=== PATIENT | male | born 1945 | race Two or more races ===

== ENCOUNTER 2019-02-08 11:22 | Inpatient (IN) | payer MEDICARE, OTHER ==
[~2019-02-08] VITALS: Ht 172.7 cm; Wt 95.3 kg
[~2019-02-08 11:22] MED LIST: ALBUTEROL2.5 MG/3 M INH; AMIODARONE HCL200 MG ORAL; COUMADIN10 MG ORAL; COZAAR100 MG ORAL; COZAAR50 MG ORAL; HYDROCODON-ACE1 EA13 ORAL; K LOR ORAL; LOVENOX100 MG/1 M SQ; MIRALAX17 G2 ORAL; NORCO 10/3251 EA ORAL; NORVASC10 MG ORAL; NORVASC5 MG ORAL; PROTONIX40 MG ORAL; RESTORIL30 MG ORAL; TRAMADOL HCL50 MG ORAL; TYLENOL325 MG ORAL; UNOBMED
[2019-02-08] MEDS ORDERED: TRAMADOL HCL50 MG ORAL (11:47)
[2019-02-08] MEDS ORDERED: NORCO 5-325 TA1 EACH ORAL (11:47)
[2019-02-08 11:59] VITALS: BP 141/97
--- NOTE | 2019-02-08 12:04 | NUR ---
ED Nurse Note: Pt came in from home, walked with cane due to bilateral lower leg edema and L hand edema x 1 week, +1 non-pitting. Pt has hx of CHF. Also noted open ulcer on L lateral foot, white patch noted x 1 week. Pt complains of SOB on-and-off during this time. Usually use cane or walker at home. Pain 6/10 at this time. AOO4, vital signs stable. Will cont to monitor.
[2019-02-08 12:11] LABS: BASOPHILS % (AUTO) 1.2 % (0.0-2.0); EOSINOPHILS % (AUTO) 0.7 % (0.0-3.0); HEMATOCRIT 35.9 % (42.0-52.0); HEMOGLOBIN 10.7 G/DL (14.2-18.0); LYMPHOCYTES % (AUTO) 13.5 % (20.0-45.0); MEAN CORPUSCULAR VOLUME 76 FL (80-99); MONOCYTES % (AUTO) 8.8 % (1.0-10.0); NEUTROPHILS % (AUTO) 75.8 % (45.0-75.0); PLATELET COUNT 283 K/UL (150-450); RED BLOOD COUNT 4.69 M/UL (4.70-6.10); RED CELL DISTRIBUTION WIDTH 17.6 % (11.6-14.8); WHITE BLOOD COUNT 7.9 K/UL (4.8-10.8)
[2019-02-08 12:14] LABS: INR 1.5 (0.9-1.1)
--- NOTE | 2019-02-08 12:16 | Emergency Room Report ---
History of Present Illness General Chief Complaint: Edema Source: Patient Present Illness HPI 73-year-old male history of CHF presents with acute shortness of breath over the past 7 days, patient endorses dyspnea, no nausea no vomiting no chest pain, no abdominal pain he endorses weight gain, patient presents for evaluation, he denies any aggravating relieving factors severity is severe, constant Allergies: Coded Allergies: NO KNOWN DRUG ALLERGIES (Verified Allergy, Unknown, 06/08/15) Patient History Past Medical History: see triage record Reviewed Nursing Documentation: PMH: Agreed; PSxH: Agreed Nursing Documentation-PMH Past Medical History: No History, Except For Hx Cardiac Problems: Yes - respiratory failure, SOB, PNA Hx Hypertension: Yes Hx Diabetes: Yes Hx Cancer: No Hx Gastrointestinal Problems: No Hx Dialysis: No - Hypertensive CKD, Hyponatremia Hx Neurological Problems: No Hx Seizures: No - Gerd, sleep apnea Review of Systems All Other Systems: negative except mentioned in HPI Physical Exam Vital Signs Date Time Temp Pulse Resp B/P (MAP) Pulse Ox O2 Delivery O2 Flow Rate FiO2 02/08/19 11:29 97.9 72 20 127/90 (102) 92 Room Air Sp02 EP Interpretation: reviewed, normal General Appearance: alert, mild distress Head: normocephalic, atraumatic Eyes: bilateral eye PERRL, bilateral eye EOMI ENT: uvula midline, moist mucus membranes Neck: supple, thyroid normal, supple/symm/no masses Respiratory: decreased breath sounds, accessory muscle use, crackles Cardiovascular #1: normal peripheral pulses, regular rate, rhythm, no gallop, edema - 3+ edema up to the thigh Gastrointestinal: non tender, soft, no guarding, no rebound Musculoskeletal: normal inspection Neurologic: alert, oriented x3 Psychiatric: mood/affect normal Skin: no rash, warm/dry Medical Decision Making Diagnostic Impression: Primary Impression: CHF (congestive heart failure) Qualified Codes: I50.41 - Acute combined systolic (congestive) and diastolic ( congestive) heart failure ER Course 73-year-old male presents with shortness of breath, dyspnea, concerning for CHF exacerbation, differential also includes ACS, pneumonia Patient given Lasix, patient found to have edema 3+ Patient will be admitted to the telemetry, aspirin also given. Patient admitted to Dr. Santizo Laboratory Tests Test 02/08/19 11:50 02/08/19 12:30 White Blood Count 7.9 K/UL (4.8-10.8) Red Blood Count 4.69 M/UL (4.70-6.10) L Hemoglobin 10.7 G/DL (14.2-18.0) L Hematocrit 35.9 % (42.0-52.0) L Mean Corpuscular Volume 76 FL (80-99) L Mean Corpuscular Hemoglobin 22.8 PG (27.0-31.0) L Mean Corpuscular Hemoglobin Concent 29.8 G/DL (32.0-36.0) L Red Cell Distribution Width 17.6 % (11.6-14.8) H Platelet Count 283 K/UL (150-450) Mean Platelet Volume 6.8 FL (6.5-10.1) Neutrophils (%) (Auto) 75.8 % (45.0-75.0) H Lymphocytes (%) (Auto) 13.5 % (20.0-45.0) L Monocytes (%) (Auto) 8.8 % (1.0-10.0) Eosinophils (%) (Auto) 0.7 % (0.0-3.0) Basophils (%) (Auto) 1.2 % (0.0-2.0) Prothrombin Time 15.4 SEC (9.30-11.50) H Prothrombin Time INR 1.5 (0.9-1.1) H PTT 31 SEC (23-33) Sodium Level 146 MMOL/L (136-145) H Potassium Level 4.7 MMOL/L (3.5-5.1) Chloride Level 106 MMOL/L (98-107) Carbon Dioxide Level 32 MMOL/L (21-32) Anion Gap 9 mmol/L (5-15) Blood Urea Nitrogen 31 mg/dL (7-18) H Creatinine 1.9 MG/DL (0.55-1.30) H Estimate Glomerular Filtration Rate mL/min (>60) Glucose Level 106 MG/DL (74-106) Calcium Level 8.6 MG/DL (8.5-10.1) Total Bilirubin 0.6 MG/DL (0.2-1.0) Aspartate Amino Transferase (AST) 46 U/L (15-37) H Alanine Aminotransferase (ALT) 48 U/L (12-78) Alkaline Phosphatase 86 U/L (46-116) Total Creatine Kinase 178 U/L (26-308) Creatine Kinase MB 2.6 NG/ML (0.0-3.6) Creatine Kinase MB Relative Index 1.4 Troponin I 0.030 ng/mL (0.000-0.056) Pro-B-Type Natriuretic Peptide 3593 pg/mL (0-125) H Total Protein 6.7 G/DL (6.4-8.2) Albumin 2.8 G/DL (3.4-5.0) L Globulin 3.9 g/dL Albumin/Globulin Ratio 0.7 (1.0-2.7) L Lipase 149 U/L (73-393) Urine Opiates Screen Negative (NEGATIVE) Urine Barbiturates Screen Negative (NEGATIVE) Phencyclidine (PCP) Screen Negative (NEGATIVE) Urine Amphetamines Screen Negative (NEGATIVE) Urine Benzodiazepines Screen Negative (NEGATIVE) Urine Cocaine Screen Negative (NEGATIVE) Urine Marijuana (THC) Screen Negative (NEGATIVE) EKG Diagnostic Results EKG Time: 11:43 EP Interpretation: AV paced dual rhythm, rate 79, QTc 42, no acute ST elevations Rhythm Strip Diag. Results Rhythm Strip Time: 12:46 EP Interpretation: yes Rate: 74 Rhythm: other - paced rhythm Chest X-Ray Diagnostic Results Chest X-Ray Diagnostic Results : Chest X-Ray Ordered: Yes # of Views/Limited/Complete: 1 View Indication: Chest Pain EP Interpretation: Yes Interpretation: other - Bilateral edema Impression: Other - Moderate pulmonary edema Electronically Signed by: Emre Jernigan MD Last Vital Signs Date Time Temp Pulse Resp B/P (MAP) Pulse Ox O2 Delivery O2 Flow Rate FiO2 02/08/19 11:59 97.9 77 18 141/97 95 Room Air Disposition: ADMITTED INPATIENT Condition: Stable Emre Jernigan MD Feb 08, 2019 12:16
[2019-02-08 12:19] LABS: ANION GAP 9 mmol/L (5-15); BLOOD UREA NITROGEN 31 mg/dL (7-18); CALCIUM 8.6 MG/DL (8.5-10.1); CARBON DIOXIDE 32 MMOL/L (21-32); CHLORIDE 106 MMOL/L (98-107); CREATININE 1.9 MG/DL (0.55-1.30); POTASSIUM 4.7 MMOL/L (3.5-5.1); SODIUM 146 MMOL/L (136-145)
[2019-02-08 12:31] LABS: ALANINE AMINOTRANSFERASE 48 U/L (12-78); ALBUMIN 2.8 G/DL (3.4-5.0); ALBUMIN/GLOBULIN RATIO 0.7 (1.0-2.7); ALKALINE PHOSPHATASE 86 U/L (46-116); ASPARTATE AMINO TRANSFERASE 46 U/L (15-37); BILIRUBIN,TOTAL 0.6 MG/DL (0.2-1.0); CKMB 2.6 NG/ML (0.0-3.6); CREATINE KINASE 178 U/L (26-308)
--- NOTE | 2019-02-08 13:00 | NUR ---
ED Nurse Note: Lt foot wound picture updated.
--- NOTE | 2019-02-08 13:41 | NUR ---
ED Nurse Note: Report given to ZACK Austin.
[2019-02-08] MEDS ORDERED: FUROSEMIDE20 M1 ORAL (13:49)
[2019-02-08] MEDS ORDERED: XARELTO10 MG ORAL (13:49)
--- NOTE | 2019-02-08 14:12 | NUR ---
ED Nurse Note: pt left unit with 1 tire and lube technician and 1 RN in stable condition.
[2019-02-08 14:24] VITALS: BP 142/106
--- NOTE | 2019-02-08 14:30 | NUR ---
NURSE NOTES: Patient transferred safely to floor from ED. Report received from ZACK Sahu. hand spring repairer helper applied and pt is SR. Belongings verified. Patient has cane and phone at bedside. A+Ox4, denies pain/SOB. Respirations are even and unlabored on room air. IV site is patent and intact. Patient has bilateral leg 2+ edema. Pt is in stable condition at this time. Addendum: 02/08/19 at 1645 by MATTHEW SKINNER RN Patient is V-Paced
--- NOTE | 2019-02-08 14:57 | Diagnostic Imaging Report ---
Indication: Dyspnea Technique: One view of the chest Comparison: 07/04/2015 Findings: There is mild diffuse bilateral interstitial congestion. Atelectasis and/or scarring are seen at both lung bases. There is probably some pleural fluid on the left. The heart is enlarged. Findings are similar to the previous study Impression: Cardiomegaly Bilateral interstitial edema Suspect left-sided pleural effusion
--- NOTE | 2019-02-08 15:14 | NUR ---
NURSE NOTES: Left message with Dr. Santizo regarding admission orders; awaiting response.
--- NOTE | 2019-02-08 15:40 | NUR ---
NURSE NOTES: Dr. Santizo let me know that Dr. Shields is going to put in admission orders. Left message with Dr. Shields; awaiting response.
[2019-02-08 16:00] VITALS: BP 140/91
--- NOTE | 2019-02-08 16:00 | NUR ---
NURSE NOTES: Per Dr. Santizo, Low sodium diet, insert joaquin, troponin q8hr x3, ekg in AM, O2 PRN, duoneb q6 PRN, resume home meds, morphine 2 mg IV PRN, nutrition eval, cbc+bmp in AM, lasix 10 mg IV BID, and to call Dr. Shields for any other orders.
--- NOTE | 2019-02-08 17:00 | NUR ---
NURSE NOTES: Bennett catheter inserted.
--- NOTE | 2019-02-08 18:57 | NUR ---
NURSE NOTES: 16 Fr joaquin leaking with little output. Inserted 18 Fr and patient was in extreme pain with some resistance. Took joaquin out and let patient void using urinal. Left message with Dr. Santizo; awaiting response.
--- NOTE | 2019-02-08 19:18 | NUR ---
HAND-OFF: Report given to ZACK Ford. Pt is in stable condition; plan of care endorsed.
--- NOTE | 2019-02-08 19:18 | NUR ---
NURSE NOTES: Per Dr. Santizo, okay to not reinsert joaquin. Urinal is okay. Strict I+Os from nursing staff.
--- NOTE | 2019-02-08 19:27 | Cardiology Progress Note ---
Assessment/Plan Assessment/Plan The patient is seen and examined, full consult note will be dictated shortly. Objective Last 24 Hour Vital Signs Date Time Temp Pulse Resp B/P (MAP) Pulse Ox O2 Delivery O2 Flow Rate FiO2 02/08/19 16:00 Room Air 02/08/19 16:00 74 02/08/19 16:00 98.0 76 20 140/91 (107) 100 02/08/19 14:24 97.5 75 18 142/106 (118) 94 02/08/19 14:21 80 02/08/19 14:12 98.1 71 18 135/86 95 Room Air 02/08/19 11:59 97.9 77 18 141/97 95 Room Air 02/08/19 11:57 72 20 Room Air 02/08/19 11:29 97.9 72 20 127/90 (102) 92 Room Air Laboratory Tests Test 02/08/19 11:50 02/08/19 12:30 White Blood Count 7.9 K/UL (4.8-10.8) Red Blood Count 4.69 M/UL (4.70-6.10) L Hemoglobin 10.7 G/DL (14.2-18.0) L Hematocrit 35.9 % (42.0-52.0) L Mean Corpuscular Volume 76 FL (80-99) L Mean Corpuscular Hemoglobin 22.8 PG (27.0-31.0) L Mean Corpuscular Hemoglobin Concent 29.8 G/DL (32.0-36.0) L Red Cell Distribution Width 17.6 % (11.6-14.8) H Platelet Count 283 K/UL (150-450) Mean Platelet Volume 6.8 FL (6.5-10.1) Neutrophils (%) (Auto) 75.8 % (45.0-75.0) H Lymphocytes (%) (Auto) 13.5 % (20.0-45.0) L Monocytes (%) (Auto) 8.8 % (1.0-10.0) Eosinophils (%) (Auto) 0.7 % (0.0-3.0) Basophils (%) (Auto) 1.2 % (0.0-2.0) Prothrombin Time 15.4 SEC (9.30-11.50) H Prothromb Time International Ratio 1.5 (0.9-1.1) H Activated Partial Thromboplast Time 31 SEC (23-33) Sodium Level 146 MMOL/L (136-145) H Potassium Level 4.7 MMOL/L (3.5-5.1) Chloride Level 106 MMOL/L (98-107) Carbon Dioxide Level 32 MMOL/L (21-32) Anion Gap 9 mmol/L (5-15) Blood Urea Nitrogen 31 mg/dL (7-18) H Creatinine 1.9 MG/DL (0.55-1.30) H Estimat Glomerular Filtration Rate mL/min (>60) Glucose Level 106 MG/DL (74-106) Calcium Level 8.6 MG/DL (8.5-10.1) Total Bilirubin 0.6 MG/DL (0.2-1.0) Aspartate Amino Transf (AST/SGOT) 46 U/L (15-37) H Alanine Aminotransferase (ALT/SGPT) 48 U/L (12-78) Alkaline Phosphatase 86 U/L (46-116) Total Creatine Kinase 178 U/L (26-308) Creatine Kinase MB 2.6 NG/ML (0.0-3.6) Creatine Kinase MB Relative Index 1.4 Troponin I 0.030 ng/mL (0.000-0.056) Pro-B-Type Natriuretic Peptide 3593 pg/mL (0-125) H Total Protein 6.7 G/DL (6.4-8.2) Albumin 2.8 G/DL (3.4-5.0) L Globulin 3.9 g/dL Albumin/Globulin Ratio 0.7 (1.0-2.7) L Lipase 149 U/L (73-393) Urine Opiates Screen Negative (NEGATIVE) Urine Barbiturates Screen Negative (NEGATIVE) Phencyclidine (PCP) Screen Negative (NEGATIVE) Urine Amphetamines Screen Negative (NEGATIVE) Urine Benzodiazepines Screen Negative (NEGATIVE) Urine Cocaine Screen Negative (NEGATIVE) Urine Marijuana (THC) Screen Negative (NEGATIVE) Yosi Shields MD Feb 08, 2019 19:27
[2019-02-08] MEDS: Albuterol/Ipratropium 3ml neb HHN PRN (19:39)
--- NOTE | 2019-02-08 19:42 | NUR ---
NURSE NOTES: Received patient from ZACK Austin, patient stable seems a little anxious, complains of pain in his back, AOx4, on O2 n/c @2L, IV on right hand g20, patent, asymptomatic, ambulates with Dr. Cornelius echeverria here putting in orders for patient. bed low&locked, side rails upx3, call light within reach, will continue to monitor and reassess
[2019-02-08] MEDS ORDERED: Digoxin 0.5mg/2ml Inj IVP SCH (19:45)
[2019-02-08 20:00] VITALS: BP 115/73
[2019-02-08] MEDS ORDERED: Metoprolol 5mg/5ml Inj IVP SCH (20:00)
[2019-02-08] MEDS: metOLazone 2.5 MG TAB ORAL SCH (20:25)
[2019-02-08] MEDS: Metoprolol 25mg tab ORAL SCH (21:26)
[2019-02-08] MEDS: HYDROcodone/Acetamin 5/325 tab ORAL PRN (21:32)
[2019-02-09] VITALS: BP 129/99
--- NOTE | 2019-02-09 00:15 | Consultation ---
DATE OF CONSULTATION: 02/08/2019 CARDIOLOGY CONSULTATION CONSULTING PHYSICIAN: Yosi Shields M.D. REFERRING PHYSICIAN: Jose Elias Santizo D.O. REASON FOR CONSULTATION: Management of acute heart failure. HISTORY OF PRESENT ILLNESS: The patient is a very unfortunate 73-year-old gentleman, who presents to the hospital with acute onset of shortness of breath. It has been going on for about 7 days. The patient also complained of bilateral lower extremity edema that has not been relieved by addition of Lasix to his regimen given by his logistics planning engineer. The patient's history is significant for history of heart failure with normal EF documented in June 2015. Other cardiovascular history is significant for history of paroxysmal atrial fibrillation, on amiodarone, status post dual-chamber pacemaker implantation at [facility], history of hypertension, and history of chronic kidney disease. The patient states that he has been compliant with his logistics planning engineer outpatient visits. PAST MEDICAL HISTORY: Hypertension, diabetes mellitus, chronic kidney disease, hyponatremia, gastroesophageal reflux disease, sleep apnea, history of respiratory failure, and history of pneumonia. PAST SURGICAL HISTORY: Dual-chamber pacemaker implantation. SOCIAL HISTORY: Denies any tobacco, alcohol, or illicit drug use at this time. He smoked for about 20 years about half a pack per day in the past and quit many many years ago. Therefore, about 10 pack-year. ALLERGIES: No known drug allergies. REVIEW OF SYSTEMS: HEENT: Denies any headache, diplopia, or blurred vision. CONSTITUTIONAL: Denies any fever, chills, night sweats, or weight loss. CARDIOVASCULAR: Denies any chest pain. He has progressive worsening of shortness of breath, bilateral lower extremity edema, PND, and orthopnea. Denies any syncope. PULMONARY: Shortness of breath, but no hemoptysis or wheezing. GASTROINTESTINAL: Denies any nausea, vomiting, diarrhea, constipation, abdominal pain, or GI bleed. GENITOURINARY: Denies any hematuria, dysuria, or incontinence. MEDICATIONS: At home including albuterol inhaler 3 mL inhaler every 4 hours p.r.n. shortness of breath, amiodarone 200 mg daily, Norvasc 5 mg p.o. daily, Lasix 20 mg p.o. twice daily, hydrocodone 5/325 one tablet q.4 h. p.r.n. pain, losartan 100 mg p.o. daily, rivaroxaban 15 mg p.o. daily, and tramadol 50 mg twice daily. PHYSICAL EXAMINATION: VITAL SIGNS: Blood pressure was 127/90, pulse of 72, respirations 20, temperature 97.9 degrees Fahrenheit, and O2 saturation 92% on room air. GENERAL: The patient is a very pleasant 73-year-old gentleman in [id number] respiratory distress. Alert and oriented x4. HEENT: Atraumatic and normocephalic. Anicteric. Pupils are equal, round, and reactive to light and accommodation. Extraocular muscles intact. NECK: JVP elevated about 15 cm. No carotid bruit. Carotid upstrokes 2+ bilaterally. CARDIOVASCULAR SYSTEM: Normal S1 and S2. Regular rhythm. A 2/6 midsystolic murmur at the left sternal border. PMI is at fourth intercostal space in the midclavicular line. LUNGS: Bibasilar crackles. ABDOMEN: Soft, nontender, and nondistended. No hepatosplenomegaly. Positive bowel sounds. EXTREMITIES: There is 4+ bilateral pitting edema in both legs. LABORATORY FINDINGS: Sodium was 146, potassium is 4.7, chloride 106, bicarbonate 32, BUN of 31, creatinine 1.9, glucose 106, and calcium is 8.6. Troponin I was 0.03. ProBNP was 3593. Toxicology was negative. INR was 1.5. Blood gas showed pH of 7.46, pCO2 of 66.5, pO2 of 81.5, bicarbonate 46.8, and O2 saturation 95.9%. Chest x-ray shows cardiomegaly with congestive heart failure and left-sided pleural effusion and dual-chamber pacemaker. Both the right atrial and right ventricular is dislodged and right ventricular lead appears to be in the RVOT. A 12-lead ECG is AV-paced rhythm. ASSESSMENT AND PLAN: The patient is a very unfortunate 73-year-old gentleman, who is seen in Cardiology consultation. 1. Acute on chronic heart failure with normal EF. Beta-natriuretic peptide is elevated. Chest x-ray shows bilateral pulmonary edema. Given the magnitude of hypervolemia, I would like to start the patient on metolazone. We will continue to monitor the potassium very closely. We will continue with current dose of Lasix. He would require strict I's and O's and fluid restriction less than 1500. 2D echocardiography will be done to assess LV systolic and diastolic function. 2. Paroxysmal atrial fibrillation. We will continue on amiodarone therapy. Xarelto will be continued at 15 mg daily as well. 3. History of hypertension. I agree with amlodipine. I will like to add metoprolol as well. IV metoprolol 5 mg x1 dose followed by 50 mg of metoprolol tartrate twice daily. 4. Status post dual-chamber pacemaker implantation with right atrial and right ventricular dislodgement. We will continue monitoring. We will interrogate the device. 5. CKD with some acute component as the creatinine jumped up from 1.3 to 1.9 when compared with the creatinine in June 2015. 6. History of diabetes mellitus. Most likely, prediabetes as the patient is not on any antidiabetic regimen. I would like to thank, Dr. Santizo, for allowing me to participate in the care of this patient. Yosi Shields M.D. DR: Ayana JOB#: [id number] CC:
[2019-02-09] MEDS: Albuterol/Ipratropium 3ml neb HHN PRN ×3 (03:23→20:41)
[2019-02-09 04:00] VITALS: BP 124/89
[2019-02-09] MEDS: Morphine Sulfate 2mg/ml Inj(IV/IM USE ONLY) IVP PRN ×2 (04:17→16:23)
--- NOTE | 2019-02-09 06:45 | CDS Physician Query ---
Clarification is required for compliance, coding accuracy, and to reflect severity of illness for this patient Dear Dr. Yosi Shields M.D. Date: 02/09/2019 Customs [employer] Border [employer] Inspector/CDS Name: Sherman Goode The patient is a very unfortunate 73-year-old gentleman, who presents to the hospital with acute onset of shortness of breath. It has been going on for about 7 days. The patient also complained of bilateral lower extremity edema that has not been relieved by addition of Lasix to his regimen given by his radio journalist. Tx: IV FUROSEMID "Acute on chronic heart failure with normal EF" documented in consultation notes Please Clarify: Type [] Systolic [] Diastolic [] Systolic & Diastolic (Combined) [] Other: Present on Admission: [] Yes [] No [] Clinically Undetermined Physician signature Date Please also document in your Progress Notes and/or Discharge Summary and indicate if the condition was present on admission. BOOGIED
[2019-02-09 07:26] LABS: BASOPHILS % (AUTO) 0.5 % (0.0-2.0); EOSINOPHILS % (AUTO) 2.2 % (0.0-3.0); HEMATOCRIT 35.4 % (42.0-52.0); HEMOGLOBIN 10.6 G/DL (14.2-18.0); LYMPHOCYTES % (AUTO) 15.5 % (20.0-45.0); MEAN CORPUSCULAR VOLUME 77 FL (80-99); NEUTROPHILS % (AUTO) 71.8 % (45.0-75.0); PLATELET COUNT 268 K/UL (150-450); RED BLOOD COUNT 4.62 M/UL (4.70-6.10); RED CELL DISTRIBUTION WIDTH 17.8 % (11.6-14.8); WHITE BLOOD COUNT 9.1 K/UL (4.8-10.8)
--- NOTE | 2019-02-09 07:27 | NUR ---
HAND-OFF: Report given to ZACK Austin, patient in stable condition, plan of care endorsed.
[2019-02-09 07:39] LABS: ALANINE AMINOTRANSFERASE 48 U/L (12-78); ALBUMIN 2.7 G/DL (3.4-5.0); ALBUMIN/GLOBULIN RATIO 0.7 (1.0-2.7); ALKALINE PHOSPHATASE 98 U/L (46-116); ANION GAP 7 mmol/L (5-15); ASPARTATE AMINO TRANSFERASE 35 U/L (15-37); BILIRUBIN,TOTAL 0.5 MG/DL (0.2-1.0); BLOOD UREA NITROGEN 31 mg/dL (7-18); CALCIUM 8.7 MG/DL (8.5-10.1); CARBON DIOXIDE 33 MMOL/L (21-32); CHLORIDE 105 MMOL/L (98-107); CREATININE 1.8 MG/DL (0.55-1.30); POTASSIUM 3.6 MMOL/L (3.5-5.1); SODIUM 145 MMOL/L (136-145)
[2019-02-09 08:00] VITALS: BP 152/103
[2019-02-09] MEDS: Losartan 50mg tab ORAL SCH (08:45)
[2019-02-09] MEDS: metOLazone 2.5 MG TAB ORAL SCH ×2 (08:46→21:37)
[2019-02-09] MEDS: Xarelto 15mg tab ORAL SCH (08:47)
[2019-02-09] MEDS: Metoprolol 25mg tab ORAL SCH ×2 (08:47→21:37)
[2019-02-09] MEDS: Amiodarone 200mg tab ORAL SCH (08:48)
[2019-02-09 12:00] VITALS: BP 137/97
[2019-02-09 16:00] VITALS: BP 122/83
--- NOTE | 2019-02-09 16:00 | History and Physical Report ---
DATE OF ADMISSION: 02/08/2019 DATE AND TIME SEEN: 02/09/2019 at 9 a.m. LANGUAGE ASSISTANT: Yosi Shields M.D. CHIEF COMPLAINT: Shortness of breath, CHF, and edema. BRIEF HISTORY: This is a 73-year-old male, who lives at home, complaining of one week of increased shortness of breath and swelling of leg, came to [place], diagnosed with CHF exacerbation, shortness of breath and edema, and admitted to telemetry for further care. Currently, calm in bed, slight short of breath. Getting echocardiogram. No complaint. REVIEW OF SYSTEMS: No chest pain. Slight short of breath. No nausea, vomiting, or diarrhea. PAST MEDICAL HISTORY: Includes edema, hypertension, arrhythmia, CHF. PAST SURGICAL HISTORY: None. ALLERGIES: Denies. MEDICATIONS: Include amiodarone, amlodipine, losartan, Lasix, Lopressor, metolazone, morphine, and hydrocodone. SOCIAL HISTORY: No smoking. No alcohol. No intravenous drug abuse. FAMILY HISTORY: Noncontributory. PHYSICAL EXAMINATION: GENERAL: Slight short of breath in bed, oriented x3, in no acute distress. VITAL SIGNS: Temperature is 98 degrees, pulse 84, respirations 20, and blood pressure 152/103. CARDIOVASCULAR: No murmurs. LUNGS: Poor air exchange. Slight crackles at bases. ABDOMEN: Bowel sounds positive. Nontender. Nondistended. EXTREMITIES: No cyanosis or clubbing. 2+ edema. NEUROLOGIC: The patient moves all extremities, slightly weak. LABORATORY AND DIAGNOSTIC DATA: Labs at this time show hemoglobin and hematocrit 10.6/35, otherwise CBC is normal. BMP shows BUN and creatinine 31/1.8 and CO2 33. Troponin 0.03. BNP is 3593. Albumin 2.7. INR is 1.5, PTT 31. Urine tox is negative. ASSESSMENT: 1. Congestive heart failure exacerbation. 2. Edema. 3. Anemia. 4. Hypertension. 5. Renal insufficiency. 6. Arrhythmia. 7. Malnutrition. PLAN: 1. O2 and pulmonary treatment. 2. PT and dietary evaluation. 3. CBC and BMP in the morning. 4. Resume home medications. 5. Diurese. 6. Blood pressure and pain control. 7. Nephrology evaluation by Dr. Pollard. Jose Elias Santizo D.O. DR: MARTHA JOB#: [id number] CC:
--- NOTE | 2019-02-09 16:11 | NUR ---
P.T Note: P.T evaluation completed and tx initiated. Please refer to P.T evaluation for current functional status and POC. Skilled P.T service is warranted to improve strength and endurance to increase his mobility independence and activity tolerance. Recommend home P.T at [place].
--- NOTE | 2019-02-09 16:15 | Cardiology Report ---
APPROVED REPORT EXAM: Two-dimensional and M-mode echocardiogram with Doppler and color Doppler. INDICATION Dyspnea S.O.B M-Mode DIMENSIONS IVSd1.2 (0.7-1.1cm)Left Atrium (MM)4.2 (1.6-4.0cm) LVDd4.5 (3.5-5.6cm)Aortic Root3.4 (2.0-3.7cm) PWd1.0 (0.7-1.1cm)Aortic Cusp Exc.1.6 (1.5-2.0cm) IVSs1.2 cm LVDs2.7 (2.5-4.0cm) PWs1.2 cm Normal left ventricular chamber size, systolic function and wall motion . Left ventricular ejection fraction estimated to be 55%. No evidence left ventricular hypertrophy. Prominent papillary muscle noted in the LV. No pericardial effusion. Mild bi-atrial enlargement . Mild right ventricular enlargemet . Aortic valve calcification with normal cusp excursion . Mildly thickened mitral valve leaflets with normal excursion. Mild mitral annulus and aortic root calcification. Pulmonic valve not well visualized. IVC dilated at 2.3 cm without physiologic collapse suggestive of increased RA pressure. A color flow and spectral Doppler study was performed and revealed: Mild to moderate aortic insufficiency . Mitral diastolic velocities suggest reduced left ventricular relaxation c/w mild LV diastolic dysfunction (Grade I ) Mild mitral regurgitation. Mild to moderate tricuspid regurgitation. Tricuspid systolic velocities suggests peak right ventricular systolic pressure of 68mmHg,consistent with severe pulmonary hypertension.
--- NOTE | 2019-02-09 19:32 | NUR ---
HAND-OFF: Report given to Dianne Packer RN. Pt is in stable condition; plan of care endorsed.
--- NOTE | 2019-02-09 20:00 | NUR ---
NURSE NOTES:received pt a/o, vs stable, av pacing rate 73, sitting at bedside, requested hhn and rt gave treatment
[2019-02-09 20:27] VITALS: BP 112/91
--- NOTE | 2019-02-09 21:00 | NUR ---
NURSE NOTES: was reported by day shift that patient has a right great toe wound, noted no dressing will place dressing and ask day rn to follow up with pmd for wound consult.
[2019-02-09] MEDS: HYDROcodone/Acetamin 5/325 tab ORAL PRN (21:45)
[2019-02-10] VITALS: BP 150/100
--- NOTE | 2019-02-10 01:22 | NUR ---
NURSE NOTES:pt pulled iv out accidentally, reinserted righr forearm
[2019-02-10 04:00] VITALS: BP 139/86
[2019-02-10] MEDS: HYDROcodone/Acetamin 5/325 tab ORAL PRN ×2 (06:16→21:11)
--- NOTE | 2019-02-10 07:10 | NUR ---
NURSE NOTES: Received report from ZACK Dean. Pt sitting at edge of bed, talkative, finishing breakfast, no complaints of pain, no distress noted, edema noted in bilateral hands and bilateral legs and feet, assessment done and charted, bed in lowest position, call light within reach, discussed plan of care and directed pt to lay in bed with feet elevated.
[2019-02-10 07:24] LABS: HEMATOCRIT 38.7 % (42.0-52.0); HEMOGLOBIN 11.8 G/DL (14.2-18.0); MEAN CORPUSCULAR VOLUME 77 FL (80-99); PLATELET COUNT 283 K/UL (150-450); RED BLOOD COUNT 5.04 M/UL (4.70-6.10); RED CELL DISTRIBUTION WIDTH 17.8 % (11.6-14.8); WHITE BLOOD COUNT 18.6 K/UL (4.8-10.8)
--- NOTE | 2019-02-10 07:26 | NUR ---
HAND-OFF: Report given to Kamilla Patrick.
[2019-02-10 07:28] LABS: ANION GAP 8 mmol/L (5-15); BLOOD UREA NITROGEN 26 mg/dL (7-18); CALCIUM 8.8 MG/DL (8.5-10.1); CARBON DIOXIDE 32 MMOL/L (21-32); CHLORIDE 102 MMOL/L (98-107); CREATININE 1.6 MG/DL (0.55-1.30); POTASSIUM 3.6 MMOL/L (3.5-5.1); SODIUM 141 MMOL/L (136-145)
[2019-02-10 08:00] VITALS: BP 131/91
[2019-02-10] MEDS: metOLazone 2.5 MG TAB ORAL SCH ×2 (08:00→21:05)
--- NOTE | 2019-02-10 08:15 | NUR ---
NURSE NOTES: Educated pt about elevating legs as they are noted to have 4+ edema in bilateral legs and feet. RN assisted pt back to bed with HOB at 45 degrees and two pillow under bilateral feet. Addendum: 02/10/19 at 0946 by JANNET BAXTER RN NURSE NOTES: Pt found sitting at edge of bed with feet on floor, RN educated pt again regarding elevated feet. Pt states "I couldn't sit like that, it got uncomfortable." RN used a chair to elevate pt's feet.
--- NOTE | 2019-02-10 08:43 | General Progress Note ---
Progress Note Progress Note [id number] full note dictated Lina Pollard MD Feb 10, 2019 08:43
[2019-02-10] MEDS: Losartan 50mg tab ORAL SCH (08:50)
[2019-02-10] MEDS: Amiodarone 200mg tab ORAL SCH (08:50)
[2019-02-10] MEDS: Xarelto 15mg tab ORAL SCH (08:51)
[2019-02-10] MEDS: Metoprolol 25mg tab ORAL SCH ×2 (08:51→21:05)
--- NOTE | 2019-02-10 09:14 | NUR ---
RD ASSESSMENT & RECOMMENDATIONS SEE CARE ACTIVITY FOR COMPLETE ASSESSMENT DAILY ESTIMATED NEEDS: Needs based on obese, cardiac 78.5kg abw 20-25 kcals/kg 9877-1372 total kcals 1-1.2 g protein/kg 79-94 g total protein Fluid per MD, on diuretics NUTRITION DIAGNOSIS: Decreased sodium needs r/t edema, CHF as evidenced by BL foot and hand edema (4+, 3+), elev BNP (3593). CURRENT DIET: Low Na PO DIET RECOMMENDATIONS-->> LOW NA DIET + 1.2L fluid restriction per MD orders ADDITIONAL RECOMMENDATIONS: 1) rec WC eval for L foot wound (open, pt reports a 'bunion') 2) Diet edu provided on Low na diet 3) Add B-complex daily 4) Obtain daily calibrated bed scale wts on diuretics 5) Per MD notes- h/o Diabetes. BG currently wnl-> Rec HgA1C for eval
[2019-02-10 10:15] LABS: APPEARANCE,URINE CLEAR; BILIRUBIN, URINE NEGATIVE (NEGATIVE); COLOR,URINE PALE YELLOW; GLUCOSE, URINE (UA) NEGATIVE (NEGATIVE); KETONES,URINE NEGATIVE (NEGATIVE); LEUKOCYTE ESTERASE ,URINE 3+ (NEGATIVE); NITRITE,URINE NEGATIVE (NEGATIVE); PH,URINE 7 (4.5-8.0); PROTEIN,URINE NEGATIVE (NEGATIVE); UROBILINOGEN,URINE 1 MG/DL (0.0-1.0)
[2019-02-10 12:00] VITALS: BP 117/76
--- NOTE | 2019-02-10 14:51 | General Progress Note ---
Assessment/Plan Problem List: (1) UTI (urinary tract infection) ICD Codes: N39.0 - Urinary tract infection, site not specified SNOMED: 73695335 (2) Peripheral edema ICD Codes: R60.9 - Edema, unspecified SNOMED: 593055791 (3) Cardiomyopathy ICD Codes: I42.9 - Cardiomyopathy, unspecified SNOMED: 49858391 (4) Respiratory distress ICD Codes: R06.00 - Dyspnea, unspecified SNOMED: 830124161 (5) Arrhythmia ICD Codes: I49.9 - Cardiac arrhythmia, unspecified SNOMED: 65050372, 77292355, 890936824 (6) Dyspnea ICD Codes: R06.00 - Dyspnea, unspecified SNOMED: 605803683 (7) CHF (congestive heart failure) ICD Codes: I50.9 - Heart failure, unspecified SNOMED: 25264874 Qualifiers: Qualified Codes: I50.41 - Acute combined systolic (congestive) and diastolic (congestive) heart failure Status: stable, progressing Assessment/Plan: o2 pulm tx abx pt diet eval cbc bmp am Subjective Constitutional: Reports: weakness Respiratory: Reports: shortness of breath Allergies: Coded Allergies: NO KNOWN DRUG ALLERGIES (Verified Allergy, Unknown, 06/08/15) Subjective calm in bed Objective Last 24 Hour Vital Signs Date Time Temp Pulse Resp B/P (MAP) Pulse Ox O2 Delivery O2 Flow Rate FiO2 02/10/19 12:00 99.1 81 18 117/76 (90) 93 02/10/19 11:46 79 02/10/19 08:51 87 131/91 02/10/19 08:51 87 131/91 02/10/19 08:50 131/91 02/10/19 08:00 99.8 87 20 131/91 (104) 94 02/10/19 07:55 Nasal Cannula 2.0 02/10/19 07:40 71 02/10/19 07:10 96 Nasal Cannula 2.0 28 02/10/19 07:10 72 20 97 Nasal Cannula 2.0 28 02/10/19 06:46 98.3 02/10/19 04:00 98.3 68 19 139/86 (103) 97 02/10/19 04:00 74 02/10/19 00:00 74 02/10/19 00:00 98.6 81 17 150/100 (117) 91 02/09/19 21:37 84 112/91 02/09/19 20:51 84 20 98 Nasal Cannula 2.0 28 02/09/19 20:41 82 20 92 Room Air 21 02/09/19 20:36 Nasal Cannula 2.0 02/09/19 20:34 Nasal Cannula 2.0 02/09/19 20:27 98.7 91 18 112/91 (98) 91 02/09/19 20:03 97 Nasal Cannula 2.0 28 02/09/19 20:03 90 20 97 Nasal Cannula 2.0 28 02/09/19 20:00 72 02/09/19 16:00 98.3 83 20 122/83 (96) 92 02/09/19 16:00 71 Intake and Output 02/09/19 02/10/19 18:59 06:59 Intake Total 510 ml Output Total 600 ml 250 ml Balance -90 ml -250 ml Intake Oral 510 ml Output Urine Total 600 ml 250 ml # Voids 6 Laboratory Tests 02/10/19 05:28: White Blood Count 18.6#H, Red Blood Count 5.04, Hemoglobin 11.8L, Hematocrit 38.7L, Mean Corpuscular Volume 77L, Mean Corpuscular Hemoglobin 23.4L, Mean Corpuscular Hemoglobin Concent 30.5L, Red Cell Distribution Width 17.8H, Platelet Count 283, Mean Platelet Volume 6.1L, Neutrophils (%) (Auto) , Lymphocytes (%) (Auto) , Monocytes (%) (Auto) , Eosinophils (%) (Auto) , Basophils (%) (Auto) , Differential Total Cells Counted 100, Neutrophils % ( Manual) 88H, Lymphocytes % (Manual) 6L, Monocytes % (Manual) 6, Eosinophils % ( Manual) 0, Basophils % (Manual) 0, Band Neutrophils 0, Platelet Estimate Adequate, Platelet Morphology Normal, Polychromasia 1+, Hypochromasia 1+, Anisocytosis 1+, Microcytosis 1+, Sodium Level 141, Potassium Level 3.6, Chloride Level 102, Carbon Dioxide Level 32, Anion Gap 8, Blood Urea Nitrogen 26H, Creatinine 1.6H, Estimat Glomerular Filtration Rate , Glucose Level 100, Calcium Level 8.8 02/10/19 09:45: Urine Color Pale yellow, Urine Appearance Clear, Urine pH 7, Urine Specific [place] 1.005, Urine Protein Negative, Urine Glucose (UA) Negative, Urine Ketones Negative, Urine Blood 2+H, Urine Nitrite Negative, Urine Bilirubin Negative, Urine Urobilinogen 1H, Urine Leukocyte Esterase 3+H, Urine RBC 2-4H, Urine WBC 10-15H, Urine Squamous Epithelial Cells Occasional, Urine Bacteria Occasional, Urine Eosinophils None seen, Urine Random Creatinine [Pending], Urine Random Microalbumin [Pending], Urine Random Sodium 99, Urine Creatinine 30.6, Urine Microalbumin/Creatinine Ratio [Pending] Height (Feet): 5 Height (Inches): 8.00 Weight (Pounds): 229 General Appearance: lethargic EENT: normal ENT inspection Neck: normal alignment Cardiovascular: normal peripheral pulses, normal rate, regular rhythm Respiratory/Chest: crackles/rales Abdomen: normal bowel sounds, non tender, soft Extremities: normal inspection Edema: 2+ Pedal (L), 2+ Pedal (R) Edema: mild edema Neurologic: responsive, motor weakness Skin: normal pigmentation, warm/dry Jose Elias Santizo DO Feb 10, 2019 14:51
--- NOTE | 2019-02-10 15:20 | Diagnostic Imaging Report ---
Indication: Acute renal failure Technique: Grayscale and duplex images of the kidneys, retroperitoneum, and bladder were obtained. Comparison: none Findings: Right kidney measures 11 cm in length. Left kidney measures 10.8 cm in length. Both kidneys demonstrate normal echogenicity. No hydronephrosis. No focal abnormality. Normal inferior vena cava. Bladder demonstrates wall thickening and trabeculation. The calculated prostate volume is 69 mL. Impression: Normal kidneys. Negative for hydronephrosis. Bladder wall thickening and trabeculation, may indicate chronic outlet obstruction Prostatomegaly, prostate volume 69 mL.
[2019-02-10 16:00] VITALS: BP 139/89
[2019-02-10] MEDS: Albuterol/Ipratropium 3ml neb HHN PRN (19:12)
--- NOTE | 2019-02-10 19:42 | Cardiology Progress Note ---
Assessment/Plan Assessment/Plan 1. Acute on chronic heart failure with normal EF. Beta-natriuretic peptide is elevated. Chest x-ray shows bilateral pulmonary edema. Continue metolazone and furosemide. 2D echocardiography shows normal LVEF with possible pseudo-normal LV physiology c/w moderately elevated LA pressure. 2. Paroxysmal atrial fibrillation, continue amiodarone and Xarelto. 3. History of hypertension, continue amlodipine and metoprolol. 4. 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 5. CKD with KATHARINA, creatinine down to 1.6. 6. Prediabetes. 7. Severe pulmonary HTN. Subjective Subjective Sinus rhythm at rate of 81. Objective Last 24 Hour Vital Signs Date Time Temp Pulse Resp B/P (MAP) Pulse Ox O2 Delivery O2 Flow Rate FiO2 02/10/19 19:10 95 Nasal Cannula 2.0 28 02/10/19 19:10 81 20 99 Nasal Cannula 2.0 28 84 20 95 02/10/19 19:09 82 20 95 Nasal Cannula 2.0 02/10/19 16:03 71 02/10/19 16:00 97.3 70 20 139/89 (106) 95 02/10/19 12:00 99.1 81 18 117/76 (90) 93 02/10/19 11:46 79 02/10/19 08:51 87 131/91 02/10/19 08:51 87 131/91 02/10/19 08:50 131/91 02/10/19 08:00 99.8 87 20 131/91 (104) 94 02/10/19 07:55 Nasal Cannula 2.0 02/10/19 07:40 71 02/10/19 07:10 96 Nasal Cannula 2.0 28 02/10/19 07:10 72 20 97 Nasal Cannula 2.0 28 02/10/19 06:46 98.3 02/10/19 04:00 98.3 68 19 139/86 (103) 97 02/10/19 04:00 74 02/10/19 00:00 74 02/10/19 00:00 98.6 81 17 150/100 (117) 91 02/09/19 21:37 84 112/91 02/09/19 20:51 84 20 98 Nasal Cannula 2.0 02/09/19 20:41 82 20 92 Room Air 21 02/09/19 20:36 Nasal Cannula 2.0 02/09/19 20:34 Nasal Cannula 2.0 02/09/19 20:27 98.7 91 18 112/91 (98) 91 02/09/19 20:03 97 Nasal Cannula 2.0 28 02/09/19 20:03 90 20 97 Nasal Cannula 2.0 28 02/09/19 20:00 72 Intake and Output 02/09/19 02/10/19 18:59 06:59 Intake Total 510 ml Output Total 600 ml 250 ml Balance -90 ml -250 ml Intake Oral 510 ml Output Urine Total 600 ml 250 ml # Voids 6 2D Echo: LVEF 60%, Mild AR, Grade II LVDD, MICHELLE, RVE, RVSP 66 mmHg Laboratory Tests Test 02/10/19 05:28 02/10/19 09:45 White Blood Count 18.6 K/UL (4.8-10.8) #H Red Blood Count 5.04 M/UL (4.70-6.10) Hemoglobin 11.8 G/DL (14.2-18.0) L Hematocrit 38.7 % (42.0-52.0) L Mean Corpuscular Volume 77 FL (80-99) L Mean Corpuscular Hemoglobin 23.4 PG (27.0-31.0) L Mean Corpuscular Hemoglobin Concent 30.5 G/DL (32.0-36.0) L Red Cell Distribution Width 17.8 % (11.6-14.8) H Platelet Count 283 K/UL (150-450) Mean Platelet Volume 6.1 FL (6.5-10.1) L Neutrophils (%) (Auto) % (45.0-75.0) Lymphocytes (%) (Auto) % (20.0-45.0) Monocytes (%) (Auto) % (1.0-10.0) Eosinophils (%) (Auto) % (0.0-3.0) Basophils (%) (Auto) % (0.0-2.0) Differential Total Cells Counted 100 Neutrophils % (Manual) 88 % (45-75) H Lymphocytes % (Manual) 6 % (20-45) L Monocytes % (Manual) 6 % (1-10) Eosinophils % (Manual) 0 % (0-3) Basophils % (Manual) 0 % (0-2) Band Neutrophils 0 % (0-8) Platelet Estimate Adequate Platelet Morphology Normal Polychromasia 1+ Hypochromasia 1+ Anisocytosis 1+ Microcytosis 1+ Sodium Level 141 MMOL/L (136-145) Potassium Level 3.6 MMOL/L (3.5-5.1) Chloride Level 102 MMOL/L (98-107) Carbon Dioxide Level 32 MMOL/L (21-32) Anion Gap 8 mmol/L (5-15) Blood Urea Nitrogen 26 mg/dL (7-18) H Creatinine 1.6 MG/DL (0.55-1.30) H Estimat Glomerular Filtration Rate mL/min (>60) Glucose Level 100 MG/DL (74-106) Calcium Level 8.8 MG/DL (8.5-10.1) Urine Color Pale yellow Urine Appearance Clear Urine pH 7 (4.5-8.0) Urine Specific [place] 1.005 (1.005-1.035) Urine Protein Negative (NEGATIVE) Urine Glucose (UA) Negative (NEGATIVE) Urine Ketones Negative (NEGATIVE) Urine Blood 2+ (NEGATIVE) H Urine Nitrite Negative (NEGATIVE) Urine Bilirubin Negative (NEGATIVE) Urine Urobilinogen 1 MG/DL (0.0-1.0) H Urine Leukocyte Esterase 3+ (NEGATIVE) H Urine RBC 2-4 /HPF (0 - 0) H Urine WBC 10-15 /HPF (0 - 0) H Urine Squamous Epithelial Cells Occasional /LPF Urine Bacteria Occasional /HPF (NONE) Urine Eosinophils None seen (NONE SEEN) Urine Random Creatinine Pending Urine Random Microalbumin Pending Urine Random Sodium 99 mmol/L (20-110) Urine Creatinine 30.6 MG/DL (30.0-125.0) Urine Microalbumin/Creatinine Ratio Pending Objective HEENT: Atraumatic and normocephalic. Anicteric. Pupils are equal, round, and reactive to light and accommodation. Extraocular muscles intact. NECK: JVP elevated about 15 cm. No carotid bruit. Carotid upstrokes 2+ bilaterally. CARDIOVASCULAR SYSTEM: Normal S1 and S2. Regular rhythm. A 2/6 midsystolic murmur at the left sternal border. PMI is at fourth intercostal space in the midclavicular line. LUNGS: Bibasilar crackles. ABDOMEN: Soft, nontender, and nondistended. No hepatosplenomegaly. Positive bowel sounds. EXTREMITIES: There is 4+ bilateral pitting edema in both legs. Yosi Shields MD Feb 10, 2019 19:42
--- NOTE | 2019-02-10 19:45 | NUR ---
NURSE NOTES: Received patient from Celina DIXON. Patient in bed, on 2L NC, no s/s of respiratory distress. Bed locked, in low position, bed alarm on, call light within reach. Dressing on left medial foot intact. Bilateral lower and upper extremity edema. Informed patient that he is still on fluid restrictions 1200 ml/day.
--- NOTE | 2019-02-10 19:56 | NUR ---
HAND-OFF: Report given to ZACK Ramachandran. Endorsed plan of care.
[2019-02-10 20:00] VITALS: BP 112/83
[2019-02-11] VITALS: BP 114/66
[2019-02-11] MEDS: Zolpidem 5mg tab ORAL PRN ×2 (00:23→21:16)
[2019-02-11 04:00] VITALS: BP 118/69
--- NOTE | 2019-02-11 07:10 | NUR ---
NURSE NOTES: Received report from ZACK Ramachandran. Pt in bed, awake, talkative, NC on at 2L, no apparent distress noted, HOB >30degrees, noted bilateral upper and lower edema, bed in lowest position, call light within reach.
[2019-02-11 07:37] LABS: HEMATOCRIT 35.4 % (42.0-52.0); HEMOGLOBIN 10.6 G/DL (14.2-18.0); MEAN CORPUSCULAR VOLUME 77 FL (80-99); PLATELET COUNT 259 K/UL (150-450); RED BLOOD COUNT 4.62 M/UL (4.70-6.10); RED CELL DISTRIBUTION WIDTH 17.8 % (11.6-14.8)
[2019-02-11 07:53] LABS: WHITE BLOOD COUNT 31.4 K/UL (4.8-10.8)
[2019-02-11 07:59] LABS: ANION GAP 4 mmol/L (5-15); BLOOD UREA NITROGEN 22 mg/dL (7-18); CALCIUM 8.3 MG/DL (8.5-10.1); CARBON DIOXIDE 36 MMOL/L (21-32); CHLORIDE 102 MMOL/L (98-107); CREATININE 1.6 MG/DL (0.55-1.30); POTASSIUM 2.9 MMOL/L (3.5-5.1); SODIUM 142 MMOL/L (136-145)
[2019-02-11 08:00] VITALS: BP 127/89
--- NOTE | 2019-02-11 08:02 | NUR ---
NURSE NOTES: Notified Dr. Alvarez WBC 31.4 pt has strong smelling urine, with UA positive for Leukocyte Est. and prelim culture gram negative bacillus
--- NOTE | 2019-02-11 08:21 | NUR ---
NURSE NOTES: Notified Dr. Sukhdev Monahan 2.9 asked about replacement
--- NOTE | 2019-02-11 08:45 | General Progress Note ---
Assessment/Plan Problem List: (1) UTI (urinary tract infection) ICD Codes: N39.0 - Urinary tract infection, site not specified SNOMED: 02357955 (2) Peripheral edema ICD Codes: R60.9 - Edema, unspecified SNOMED: 994308727 (3) Cardiomyopathy ICD Codes: I42.9 - Cardiomyopathy, unspecified SNOMED: 84763298 (4) Respiratory distress ICD Codes: R06.00 - Dyspnea, unspecified SNOMED: 527498316 (5) Arrhythmia ICD Codes: I49.9 - Cardiac arrhythmia, unspecified SNOMED: 58622275, 86294907, 089430814 (6) Dyspnea ICD Codes: R06.00 - Dyspnea, unspecified SNOMED: 350384609 (7) CHF (congestive heart failure) ICD Codes: I50.9 - Heart failure, unspecified SNOMED: 16669826 Qualifiers: Qualified Codes: I50.41 - Acute combined systolic (congestive) and diastolic (congestive) heart failure Status: stable, progressing Assessment/Plan: o2 pulm tx abx pt diet eval cbc bmp am Subjective Constitutional: Reports: weakness Respiratory: Reports: shortness of breath Allergies: Coded Allergies: NO KNOWN DRUG ALLERGIES (Verified Allergy, Unknown, 06/08/15) All Systems: reviewed and negative except above Subjective calm in bed Objective Last 24 Hour Vital Signs Date Time Temp Pulse Resp B/P (MAP) Pulse Ox O2 Delivery O2 Flow Rate FiO2 02/11/19 08:18 Nasal Cannula 2.0 02/11/19 04:00 99.6 74 17 118/69 (85) 98 02/11/19 04:00 70 02/11/19 00:00 66 02/11/19 00:00 99.0 73 16 114/66 (82) 94 02/10/19 21:05 82 112/83 02/10/19 21:00 Nasal Cannula 2.0 02/10/19 20:00 100.2 82 17 112/83 (93) 97 02/10/19 20:00 75 02/10/19 19:10 95 Nasal Cannula 2.0 28 02/10/19 19:10 81 20 99 Nasal Cannula 2.0 28 84 20 95 02/10/19 19:09 82 20 95 Nasal Cannula 2.0 28 02/10/19 16:03 71 02/10/19 16:00 97.3 70 20 139/89 (106) 95 02/10/19 12:00 99.1 81 18 117/76 (90) 93 02/10/19 11:46 79 02/10/19 08:51 87 131/91 02/10/19 08:51 87 131/91 02/10/19 08:50 131/91 Intake and Output 02/10/19 02/11/19 19:00 07:00 Intake Total 1029 ml Output Total 1330 ml 800 ml Balance -301 ml -800 ml Intake Oral 1025 ml Other 4 ml Output Urine Total 1330 ml 800 ml Laboratory Tests 02/10/19 09:45: Urine Color Pale yellow, Urine Appearance Clear, Urine pH 7, Urine Specific [place] 1.005, Urine Protein Negative, Urine Glucose (UA) Negative, Urine Ketones Negative, Urine Blood 2+H, Urine Nitrite Negative, Urine Bilirubin Negative, Urine Urobilinogen 1H, Urine Leukocyte Esterase 3+H, Urine RBC 2-4H, Urine WBC 10-15H, Urine Squamous Epithelial Cells Occasional, Urine Bacteria Occasional, Urine Eosinophils None seen, Urine Random Creatinine [Pending], Urine Random Microalbumin [Pending], Urine Random Sodium 99, Urine Creatinine 30.6, Urine Microalbumin/Creatinine Ratio [Pending] 02/11/19 05:34: White Blood Count 31.4#*H, Red Blood Count 4.62L, Hemoglobin 10.6L, Hematocrit 35.4L, Mean Corpuscular Volume 77L, Mean Corpuscular Hemoglobin 23.0L, Mean Corpuscular Hemoglobin Concent 30.0L, Red Cell Distribution Width 17.8H, Platelet Count 259, Mean Platelet Volume 7.2, Neutrophils (%) (Auto) , Lymphocytes (%) (Auto) , Monocytes (%) (Auto) , Eosinophils (%) (Auto) , Basophils (%) (Auto) , Neutrophils % (Manual) [Pending], Lymphocytes % (Manual) [Pending], Platelet Estimate [Pending], Platelet Morphology [Pending], Sodium Level 142, Potassium Level 2.9L, Chloride Level 102, Carbon Dioxide Level 36H, Anion Gap 4L, Blood Urea Nitrogen 22H, Creatinine 1.6H, Estimat Glomerular Filtration Rate , Glucose Level 94, Calcium Level 8.3L Height (Feet): 5 Height (Inches): 8.00 Weight (Pounds): 229 General Appearance: lethargic EENT: normal ENT inspection Neck: normal alignment Cardiovascular: normal peripheral pulses, normal rate, regular rhythm Respiratory/Chest: chest wall non-tender, lungs clear, normal breath sounds Abdomen: normal bowel sounds, non tender, soft Extremities: normal inspection Edema: 2+ Pedal (L), 2+ Pedal (R) Neurologic: responsive, motor weakness Skin: normal pigmentation, warm/dry Jose Elias Santizo DO Feb 11, 2019 08:44
--- NOTE | 2019-02-11 08:46 | Nephrology Progress Note ---
Assessment/Plan Assessment 1.KATHARINA 2.CKD 3.hypokalemia 4.CHF 5.HTN 6.hypocalcemia Plan PLAN Replace k check mg avoid NSIAD Daily wt monitoring in and out out Subjective Constitutional: Reports: no symptoms HEENT: Reports: no symptoms Genitourinary: Reports: no symptoms Neurologic/Psychiatric: Reports: no symptoms Subjective feeling better less SOB Objective Objective Last 24 Hour Vital Signs Date Time Temp Pulse Resp B/P (MAP) Pulse Ox O2 Delivery O2 Flow Rate FiO2 02/11/19 08:18 Nasal Cannula 2.0 02/11/19 04:00 99.6 74 17 118/69 (85) 98 02/11/19 04:00 70 02/11/19 00:00 66 02/11/19 00:00 99.0 73 16 114/66 (82) 94 02/10/19 21:05 82 112/83 02/10/19 21:00 Nasal Cannula 2.0 02/10/19 20:00 100.2 82 17 112/83 (93) 97 02/10/19 20:00 75 02/10/19 19:10 95 Nasal Cannula 2.0 28 02/10/19 19:10 81 20 99 Nasal Cannula 2.0 28 84 20 95 02/10/19 19:09 82 20 95 Nasal Cannula 2.0 28 02/10/19 16:03 71 02/10/19 16:00 97.3 70 20 139/89 (106) 95 02/10/19 12:00 99.1 81 18 117/76 (90) 93 02/10/19 11:46 79 02/10/19 08:51 87 131/91 02/10/19 08:51 87 131/91 02/10/19 08:50 131/91 Intake and Output 02/10/19 02/11/19 19:00 07:00 Intake Total 1029 ml Output Total 1330 ml 800 ml Balance -301 ml -800 ml Intake Oral 1025 ml Other 4 ml Output Urine Total 1330 ml 800 ml Laboratory Tests 02/10/19 09:45: Urine Color Pale yellow, Urine Appearance Clear, Urine pH 7, Urine Specific [place] 1.005, Urine Protein Negative, Urine Glucose (UA) Negative, Urine Ketones Negative, Urine Blood 2+H, Urine Nitrite Negative, Urine Bilirubin Negative, Urine Urobilinogen 1H, Urine Leukocyte Esterase 3+H, Urine RBC 2-4H, Urine WBC 10-15H, Urine Squamous Epithelial Cells Occasional, Urine Bacteria Occasional, Urine Eosinophils None seen, Urine Random Creatinine [Pending], Urine Random Microalbumin [Pending], Urine Random Sodium 99, Urine Creatinine 30.6, Urine Microalbumin/Creatinine Ratio [Pending] 02/11/19 05:34: White Blood Count 31.4#*H, Red Blood Count 4.62L, Hemoglobin 10.6L, Hematocrit 35.4L, Mean Corpuscular Volume 77L, Mean Corpuscular Hemoglobin 23.0L, Mean Corpuscular Hemoglobin Concent 30.0L, Red Cell Distribution Width 17.8H, Platelet Count 259, Mean Platelet Volume 7.2, Neutrophils (%) (Auto) , Lymphocytes (%) (Auto) , Monocytes (%) (Auto) , Eosinophils (%) (Auto) , Basophils (%) (Auto) , Neutrophils % (Manual) [Pending], Lymphocytes % (Manual) [Pending], Platelet Estimate [Pending], Platelet Morphology [Pending], Sodium Level 142, Potassium Level 2.9L, Chloride Level 102, Carbon Dioxide Level 36H, Anion Gap 4L, Blood Urea Nitrogen 22H, Creatinine 1.6H, Estimat Glomerular Filtration Rate , Glucose Level 94, Calcium Level 8.3L Height (Feet): 5 Height (Inches): 8.00 Weight (Pounds): 229 Objective HEENT: Atraumatic and normocephalic. Anicteric. Pupils are equal, round, and reactive to light and accommodation. Extraocular muscles intact. NECK: JVP elevated about 15 cm. No carotid bruit. Carotid upstrokes 2+ bilaterally. CARDIOVASCULAR SYSTEM: Normal S1 and S2. Regular rhythm. A 2/6 midsystolic murmur at the left sternal border. PMI is at fourth intercostal space in the midclavicular line. LUNGS: Bibasilar crackles. ABDOMEN: Soft, nontender, and nondistended. No hepatosplenomegaly. Positive bowel sounds. EXTREMITIES: There is 4+ bilateral pitting edema in both legs. Lina Pollard MD Feb 11, 2019 08:46
[2019-02-11] MEDS: Losartan 50mg tab ORAL SCH (09:21)
[2019-02-11] MEDS: Amiodarone 200mg tab ORAL SCH (09:22)
[2019-02-11] MEDS: Xarelto 15mg tab ORAL SCH (09:22)
[2019-02-11] MEDS: Metoprolol 25mg tab ORAL SCH ×2 (09:23→21:16)
[2019-02-11] MEDS: metOLazone 2.5 MG TAB ORAL SCH ×2 (09:29→20:01)
--- NOTE | 2019-02-11 11:54 | Consultation ---
DATE OF CONSULTATION: 02/10/2019 NEPHROLOGY CONSULTATION CONSULTING PHYSICIAN: Lina Pollard M.D. REFERRING PHYSICIAN: Jose Elias Santizo D.O. REASON FOR CONSULTATION: Acute on chronic renal failure and electrolyte imbalance. HISTORY OF PRESENT ILLNESS: The patient is an unfortunate 73-year-old male with past medical history significant for history of chronic kidney disease, stage 3, history of hypertension, diabetes, history of GERD, sleep apnea, and history of atrial fibrillation and pacemaker placement, who presented to [facility] complaining of increasing shortness of breath and decreased exercise tolerance and lower extremity edema and orthopnea. The patient was given extra dose of Lasix, was admitted. Upon admission, the patient found to have a creatinine of 1.9, admitted in the monitored bed. I was called for management of renal disease and electrolyte imbalance. PAST MEDICAL HISTORY: Includin. History of chronic kidney disease. 2. History of hypertension. 3. History of diabetes. 4. History of sleep apnea. 5. History of pneumonia. 6. History of respiratory failure. 7. History of GERD. PAST SURGICAL HISTORY: History of dual-chamber pacemaker placement. SOCIAL HISTORY: Denies any history of tobacco, alcohol, or drug use. He smoked about 20 years, half a pack a day. ALLERGIES: No known drug allergies. REVIEW OF SYSTEMS: GENERAL: He complained of generalized weakness. Denies any fever, chills, or night sweats. HEAD AND NECK: Denies any dysphagia, odynophagia, blurry vision, headache, or neck stiffness. PULMONARY: Complained of shortness of breath. Occasional cough. No hemoptysis. CARDIOVASCULAR: Complained of orthopnea, PND, and leg swelling. GASTROINTESTINAL: Denies any nausea, vomiting, diarrhea, hematemesis, or hematochezia. GENITOURINARY: Denies any dysuria, frequency, or hematuria. MUSCULOSKELETAL: Denies any weakness or numbness. HOME MEDICATIONS: Includin. Albuterol and Atrovent p.r.n. shortness of breath. 2. Amiodarone 200 mg daily. 3. Norvasc 5 mg daily. 4. Lasix 20 mg twice a day. 5. [place] 5/325 mg p.r.n. pain. 6. Losartan 100 mg p.o. daily. 7. Tramadol 50 mg daily. FAMILY HISTORY: Noncontributory. PHYSICAL EXAMINATION: VITAL SIGNS: The patient had temperature of 98 degrees, blood pressure 120/80, pulse rate of 70, respiratory rate of 20, O2 saturation of 92%. HEAD AND NECK: No JVP. No LAD. No thyromegaly. Extraocular movement intact. Pupils are reactive to light and accommodation. LUNGS: Have bilateral crackles. CARDIAC: Regular rate and rhythm. S1 and S2. No murmur. No rub. ABDOMEN: Soft, nontender, and nondistended. EXTREMITIES: 4+ edema. No clubbing. No cyanosis. LABORATORY DATA: Current laboratory values revealed sodium of 141, potassium 3.6, chloride 102, bicarb 32, BUN of 26, creatinine of 1.6, glucose of 100, calcium of 8.8. AST of 35, ALT of 48, alkaline phosphatase of . Albumin of 2.7. Globulin is . CBC, WBC count of 18, hemoglobin of 11.8, hematocrit of 38, and platelet count of 238. Urine tox was negative. ASSESSMENT: 1. Acute renal failure on chronic, most likely cardiorenal syndrome. 2. Chronic kidney disease. 3. Hypertension. 4. Diabetes. 5. CHF exacerbation. PLAN: Plan for the patient is to obtain UA. Check the random urine protein to creatinine ratio to calculate the proteinuria. Check the urine sodium and creatinine to calculate fractional excretion of sodium. Daily weight. Monitor I's and O's. Increase Lasix IV. Avoid any NSAID and nephrotoxic. Replace electrolytes as needed. Again, I would like to thank, Dr. Jose Elias Santizo, for allowing me to participate in the care of this patient. Lina Pollard M.D. DR: EDMUND JOB#: [id number] CC:
[2019-02-11 12:00] VITALS: BP 114/65
--- NOTE | 2019-02-11 12:03 | NUR ---
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 100.1 HR 79 RR 20 B/P 127/84 2L NC O2 SAT @ 100% WBC 31.4 K 2.9 BUN 22 CR 1.6 IS: ZOSYN IV LASIX IV ALB HHN K-DUR PO TELE STATUS
[2019-02-11] MEDS: Piperacillin/Tazobactam 3.375 GM in NS 110 ML IVPB SCH ×2 (14:36→21:17)
[2019-02-11 16:00] VITALS: BP 121/79
--- NOTE | 2019-02-11 18:47 | NUR ---
NURSE NOTES: Left message for Dr. Pollard, pt has had two episodes of hematuria
--- NOTE | 2019-02-11 18:55 | Consultation ---
History of Present Illness General Date patient seen: Feb 11, 2019 Chief Complaint: Edema Present Illness HPI 73 y/o M with hx of CKD 3, HTN, CHF, Dm2, GERD, former smoker, MARYURI, AFib, S/p PPM presented to ED on 02/08 with 7 days of worsening SOB, decreased exercise tolerance, LE edema and orthopnea Denied n/v, CP, abd pain. Allergies: Coded Allergies: NO KNOWN DRUG ALLERGIES (Verified Allergy, Unknown, 06/08/15) Medication History Scheduled Amiodarone Hcl* (Cordarone*), 200 MG ORAL DAILY, (Reported) Amlodipine Besylate (Norvasc), 5 MG ORAL DAILY Furosemide* (Lasix*), 20 MG ORAL BID, (Reported) Losartan Potassium (Cozaar), 100 MG ORAL DAILY, (Reported) Rivaroxaban (Xarelto*), 15 MG ORAL DAILY, (Reported) Scheduled PRN Albuterol Sulfate* (Albuterol Sulfate Hhn*), 3 ML INH Q4H PRN for Shortness of Breath, (Reported) Hydrocodone Bit/Acetaminophen 5-325* ([place] 5-325*), 1 TAB ORAL Q4H PRN for For Pain, (Reported) Tramadol Hcl* (Ultram*), 50 MG ORAL TWICE A DAY PRN for For Pain, (Reported) Discontinued Medications Acetaminophen (Tylenol), 650 MG ORAL Q6H PRN for Pain Scale (3-5), (Reported) Discontinued Reason: Pt stopped taking med Enoxaparin Sodium (Lovenox), 100 MG SQ EVERY 12 HOURS, (Reported) Discontinued Reason: Pt stopped taking med Hydrocodone Bit/Acetaminophen 10-325* (Hydrocodon-Acetaminophn 10-325*), 1 EA ORAL Q4H PRN for Moderate Pain (Pain Scale 4-6) Discontinued Reason: Pt stopped taking med Hydrocodone/Acetaminophen (Hydrocodon-Acetaminophn 10-325), 1 TAB ORAL Q4H PRN for For Pain, (Reported) Discontinued Reason: Pt stopped taking med Polyethylene Glycol 3350* (Miralax*), 17 GM ORAL DAILYPRN PRN for Constipation Discontinued Reason: Pt stopped taking med Temazepam (Restoril*), 15 MG ORAL BEDTIME, (Reported) Discontinued Reason: Pt stopped taking med Warfarin Sod* (Coumadin*), 10 MG ORAL DAILY PRN for Per rx protocol, (Reported) Discontinued Reason: Pt stopped taking med Patient History Healthcare decision maker Resuscitation status Full Code Advanced Directive on File No Patient History Narrative Pmhx: as above Shx: Denies, alcohol, or drug use. He smoked about 20 years, half a pack a day. Fhx: non contributory Review of Systems All Other Systems: negative except mentioned in HPI Physical Exam Physical Exam Narrative GENERAL: Slight short of breath in bed, oriented x3, in no acute distress. CARDIOVASCULAR: No murmurs. LUNGS: Poor air exchange. Slight crackles at bases. ABDOMEN: Bowel sounds positive. Nontender. Nondistended. EXTREMITIES: No cyanosis or clubbing. 2+ edema. NEUROLOGIC: The patient moves all extremities, slightly weak. Last 24 Hour Vital Signs Date Time Temp Pulse Resp B/P (MAP) Pulse Ox O2 Delivery O2 Flow Rate FiO2 02/11/19 16:00 99.1 75 20 121/79 (93) 96 02/11/19 15:48 70 02/11/19 12:00 96.3 77 20 114/65 (81) 94 02/11/19 11:28 74 02/11/19 09:36 97 Nasal Cannula 2.0 28 02/11/19 09:36 81 22 97 Nasal Cannula 2.0 28 02/11/19 09:23 79 127/89 02/11/19 09:22 79 127/89 02/11/19 09:21 127/89 02/11/19 09:06 72 02/11/19 08:18 Nasal Cannula 2.0 02/11/19 08:00 100.1 79 20 127/89 (102) 93 02/11/19 04:00 99.6 74 17 118/69 (85) 98 02/11/19 04:00 70 02/11/19 00:00 66 02/11/19 00:00 99.0 73 16 114/66 (82) 94 02/10/19 21:05 82 112/83 02/10/19 21:00 Nasal Cannula 2.0 02/10/19 20:00 100.2 82 17 112/83 (93) 97 02/10/19 20:00 75 02/10/19 19:10 95 Nasal Cannula 2.0 28 02/10/19 19:10 81 20 99 Nasal Cannula 2.0 28 84 20 95 02/10/19 19:09 82 20 95 Nasal Cannula 2.0 28 Intake and Output 02/10/19 02/11/19 18:59 06:59 Intake Total 1029 ml Output Total 1330 ml 800 ml Balance -301 ml -800 ml Intake Oral 1025 ml Other 4 ml Output Urine Total 1330 ml 800 ml Laboratory Tests Test 02/11/19 05:34 White Blood Count 31.4 K/UL (4.8-10.8) #*H Red Blood Count 4.62 M/UL (4.70-6.10) L Hemoglobin 10.6 G/DL (14.2-18.0) L Hematocrit 35.4 % (42.0-52.0) L Mean Corpuscular Volume 77 FL (80-99) L Mean Corpuscular Hemoglobin 23.0 PG (27.0-31.0) L Mean Corpuscular Hemoglobin Concent 30.0 G/DL (32.0-36.0) L Red Cell Distribution Width 17.8 % (11.6-14.8) H Platelet Count 259 K/UL (150-450) Mean Platelet Volume 7.2 FL (6.5-10.1) Neutrophils (%) (Auto) % (45.0-75.0) Lymphocytes (%) (Auto) % (20.0-45.0) Monocytes (%) (Auto) % (1.0-10.0) Eosinophils (%) (Auto) % (0.0-3.0) Basophils (%) (Auto) % (0.0-2.0) Differential Total Cells Counted 100 Neutrophils % (Manual) 92 % (45-75) H Lymphocytes % (Manual) 5 % (20-45) L Monocytes % (Manual) 3 % (1-10) Eosinophils % (Manual) 0 % (0-3) Basophils % (Manual) 0 % (0-2) Band Neutrophils 0 % (0-8) Platelet Estimate Adequate Platelet Morphology Normal Polychromasia 1+ Hypochromasia 1+ Anisocytosis 1+ Microcytosis 1+ Sodium Level 142 MMOL/L (136-145) Potassium Level 2.9 MMOL/L (3.5-5.1) L Chloride Level 102 MMOL/L (98-107) Carbon Dioxide Level 36 MMOL/L (21-32) H Anion Gap 4 mmol/L (5-15) L Blood Urea Nitrogen 22 mg/dL (7-18) H Creatinine 1.6 MG/DL (0.55-1.30) H Estimat Glomerular Filtration Rate mL/min (>60) Glucose Level 94 MG/DL (74-106) Calcium Level 8.3 MG/DL (8.5-10.1) L Height (Feet): 5 Height (Inches): 8.00 Weight (Pounds): 223 Medications Current Medications Medications (Trade) Dose Ordered Sig/Lucas Route PRN Reason Start Time Stop Time Status Last Admin Dose Admin Acetaminophen/ Hydrocodone Bitart ([place] 5/325) 1 tab Q4H PRN ORAL Moderate Pain (Pain Scale 4-6) 02/08/19 16:15 02/15/19 16:14 02/10/19 21:11 Albuterol/ Ipratropium (Albuterol/ Ipratropium) 3 ml Q6H PRN HHN Shortness of Breath 02/08/19 16:15 02/13/19 16:14 02/10/19 19:12 Amiodarone HCl (Cordarone) 200 mg DAILY ORAL 02/09/19 09:00 03/11/19 08:59 02/11/19 09:22 Amlodipine Besylate (Norvasc) 5 mg DAILY ORAL 02/09/19 09:00 03/11/19 08:59 02/11/19 09:22 Furosemide (Lasix) 10 mg EVERY 12 HOURS IV 02/08/19 21:00 03/10/19 20:59 02/11/19 09:24 Losartan Potassium (Cozaar) 100 mg DAILY ORAL 02/09/19 09:00 03/11/19 08:59 02/11/19 09:21 Metolazone (Zaroxolyn) 2.5 mg Q12HR@0800,2000 ORAL 02/08/19 20:30 03/10/19 20:29 02/11/19 09:29 Metoprolol Tartrate (Lopressor) 25 mg Q12HR ORAL 02/08/19 21:00 03/10/19 20:59 02/11/19 09:23 Morphine Sulfate (Morphine Sulfate) 2 mg Q4H PRN IVP Severe Pain (Pain Scale 7-10) 02/08/19 16:15 02/15/19 16:14 02/09/19 16:23 Piperacillin Sod/ Tazobactam Sod 3.375 gm/Sodium Chloride 110 ml @ 27.5 mls/hr EVERY 8 HOURS IVPB 02/11/19 14:00 02/16/19 13:59 02/11/19 14:36 Potassium Chloride (K-Dur) 40 meq TWICE A DAY ORAL 02/11/19 09:00 03/13/19 08:59 02/11/19 17:19 Rivaroxaban (Xarelto) 15 mg DAILY ORAL 02/09/19 09:00 03/11/19 08:59 02/11/19 09:22 Zolpidem Tartrate (Ambien) 5 mg HSPRN PRN ORAL Insomnia 02/10/19 20:48 02/17/19 20:47 02/11/19 00:23 Assessment/Plan Assessment/Plan: Abx: Zosyn 02/11- Assessment: Sepsis likey 2ry to UTI- r/o bacteremia -u/a wbc 10-15, nit neg, leuk +3; ucx GNR BLE edema superimposed with cellulitis Low grade fever Leukocytosis, worsening CHF exacerbation -CXR: Cardiomegaly. Bilateral interstitial edema. Suspect left-sided pleural effusion CKD 3 HTN CHF Dm2 GERD former smoker MARYURI AFib S/p PPM Obesity Plan: -Continue empiric Zosyn #1 -f/u cx -Monitor CBC/CMP, temperatures -Bcx, sp cx -Cdiff if diarrhea Thank you for this consultation. Will continue to follow along with you. Discussed with Dhara Moses M.D. Feb 11, 2019 18:55
--- NOTE | 2019-02-11 18:59 | NUR ---
HAND-OFF: Report given to ZACK Palma.
--- NOTE | 2019-02-11 19:00 | NUR ---
NURSE NOTES: RECIEV PT.,NO COMPLIENTS OF CHEST PAIN .VS STABLE.
[2019-02-11 20:00] VITALS: BP 100/58
--- NOTE | 2019-02-11 23:54 | Cardiology Progress Note ---
Assessment/Plan Assessment/Plan 1. Acute on chronic heart failure with normal EF. Beta-natriuretic peptide is elevated. Chest x-ray shows bilateral pulmonary edema. Continue metolazone and furosemide. 2D echocardiography shows normal LVEF with possible pseudo-normal LV physiology c/w moderately elevated LA pressure. 2. Paroxysmal atrial fibrillation, continue amiodarone and Xarelto. 3. History of hypertension, continue amlodipine and metoprolol. 4. 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 5. CKD with KATHARINA, creatinine stable at 1.6. 6. Prediabetes. 7. Severe pulmonary HTN. Subjective Subjective Sinus rhythm at rate of 71. Objective Last 24 Hour Vital Signs Date Time Temp Pulse Resp B/P (MAP) Pulse Ox O2 Delivery O2 Flow Rate FiO2 02/11/19 21:16 71 121/70 02/11/19 21:00 Nasal Cannula 2.0 02/11/19 20:00 99.1 71 20 100/58 (72) 02/11/19 19:52 96 Nasal Cannula 2.0 28 02/11/19 19:52 75 20 96 Nasal Cannula 2.0 28 02/11/19 16:00 99.1 75 20 121/79 (93) 96 02/11/19 15:48 70 02/11/19 12:00 96.3 77 20 114/65 (81) 94 02/11/19 11:28 74 02/11/19 09:36 97 Nasal Cannula 2.0 28 02/11/19 09:36 81 22 97 Nasal Cannula 2.0 28 02/11/19 09:23 79 127/89 02/11/19 09:22 79 127/89 02/11/19 09:21 127/89 02/11/19 09:06 72 02/11/19 08:18 Nasal Cannula 2.0 02/11/19 08:00 100.1 79 20 127/89 (102) 93 02/11/19 04:00 99.6 74 17 118/69 (85) 98 02/11/19 04:00 70 02/11/19 00:00 66 02/11/19 00:00 99.0 73 16 114/66 (82) 94 Intake and Output 02/10/19 02/11/19 19:00 07:00 Intake Total 1029 ml Output Total 1330 ml 800 ml Balance -301 ml -800 ml Intake Oral 1025 ml Other 4 ml Output Urine Total 1330 ml 800 ml 2D Echo: LVEF 60%, Mild AR, Grade II LVDD, MICHELLE, RVE, RVSP 66 mmHg Laboratory Tests Test 02/11/19 05:34 White Blood Count 31.4 K/UL (4.8-10.8) #*H Red Blood Count 4.62 M/UL (4.70-6.10) L Hemoglobin 10.6 G/DL (14.2-18.0) L Hematocrit 35.4 % (42.0-52.0) L Mean Corpuscular Volume 77 FL (80-99) L Mean Corpuscular Hemoglobin 23.0 PG (27.0-31.0) L Mean Corpuscular Hemoglobin Concent 30.0 G/DL (32.0-36.0) L Red Cell Distribution Width 17.8 % (11.6-14.8) H Platelet Count 259 K/UL (150-450) Mean Platelet Volume 7.2 FL (6.5-10.1) Neutrophils (%) (Auto) % (45.0-75.0) Lymphocytes (%) (Auto) % (20.0-45.0) Monocytes (%) (Auto) % (1.0-10.0) Eosinophils (%) (Auto) % (0.0-3.0) Basophils (%) (Auto) % (0.0-2.0) Differential Total Cells Counted 100 Neutrophils % (Manual) 92 % (45-75) H Lymphocytes % (Manual) 5 % (20-45) L Monocytes % (Manual) 3 % (1-10) Eosinophils % (Manual) 0 % (0-3) Basophils % (Manual) 0 % (0-2) Band Neutrophils 0 % (0-8) Platelet Estimate Adequate Platelet Morphology Normal Polychromasia 1+ Hypochromasia 1+ Anisocytosis 1+ Microcytosis 1+ Sodium Level 142 MMOL/L (136-145) Potassium Level 2.9 MMOL/L (3.5-5.1) L Chloride Level 102 MMOL/L (98-107) Carbon Dioxide Level 36 MMOL/L (21-32) H Anion Gap 4 mmol/L (5-15) L Blood Urea Nitrogen 22 mg/dL (7-18) H Creatinine 1.6 MG/DL (0.55-1.30) H Estimat Glomerular Filtration Rate mL/min (>60) Glucose Level 94 MG/DL (74-106) Calcium Level 8.3 MG/DL (8.5-10.1) L Microbiology Date/Time Source Procedure Growth Status 02/10/19 09:45 Urine,Clean Catch Urine Culture - Preliminary Gram Negative Bacillus 1 Resulted Objective HEENT: Atraumatic and normocephalic. Anicteric. Pupils are equal, round, and reactive to light and accommodation. Extraocular muscles intact. NECK: JVP elevated about 15 cm. No carotid bruit. Carotid upstrokes 2+ bilaterally. CARDIOVASCULAR SYSTEM: Normal S1 and S2. Regular rhythm. A 2/6 midsystolic murmur at the left sternal border. PMI is at fourth intercostal space in the midclavicular line. LUNGS: Bibasilar crackles. ABDOMEN: Soft, nontender, and nondistended. No hepatosplenomegaly. Positive bowel sounds. EXTREMITIES: There is 4+ bilateral pitting edema in both legs. Yosi Shields MD Feb 11, 2019 23:54
[2019-02-12] VITALS: BP 120/76
[2019-02-12 04:00] VITALS: BP 131/72
[2019-02-12] MEDS: Piperacillin/Tazobactam 3.375 GM in NS 110 ML IVPB SCH (06:04)
--- NOTE | 2019-02-12 06:36 | NUR ---
HAND-OFF: Report given to ELY RoseNo distres noted..
--- NOTE | 2019-02-12 07:25 | NUR ---
NURSE NOTES: Received report from Mariana. Pt in bed awake and orientedx4. No c/o pain. Bed in lowest position and locked. No acute distress noted. IV site in RAC 20G SL patent and running with IV Zosyn. Bed in its lowest position and locked. Urinal at the bedside. Side rails x3 up for safety. Will continue to plan of care.
[2019-02-12 08:00] VITALS: BP 130/97
[2019-02-12] MEDS: Amiodarone 200mg tab ORAL SCH (08:37)
[2019-02-12] MEDS: metOLazone 2.5 MG TAB ORAL SCH ×2 (08:37→20:38)
[2019-02-12] MEDS: Xarelto 15mg tab ORAL SCH (08:37)
[2019-02-12] MEDS: Metoprolol 25mg tab ORAL SCH ×2 (08:39→20:38)
[2019-02-12] MEDS: Losartan 50mg tab ORAL SCH (08:40)
[2019-02-12] MEDS: Morphine Sulfate 2mg/ml Inj(IV/IM USE ONLY) IVP PRN ×2 (08:44→18:17)
[2019-02-12 09:23] LABS: HEMOGLOBIN 10.5 G/DL (14.2-18.0); MEAN CORPUSCULAR VOLUME 77 FL (80-99); PLATELET COUNT 249 K/UL (150-450); RED BLOOD COUNT 4.53 M/UL (4.70-6.10); RED CELL DISTRIBUTION WIDTH 17.9 % (11.6-14.8); WHITE BLOOD COUNT 20.1 K/UL (4.8-10.8)
[2019-02-12 09:56] LABS: ANION GAP 7 mmol/L (5-15); BLOOD UREA NITROGEN 28 mg/dL (7-18); CALCIUM 8.3 MG/DL (8.5-10.1); CARBON DIOXIDE 34 MMOL/L (21-32); CHLORIDE 105 MMOL/L (98-107); CREATININE 1.6 MG/DL (0.55-1.30); POTASSIUM 3.5 MMOL/L (3.5-5.1); SODIUM 146 MMOL/L (136-145)
--- NOTE | 2019-02-12 11:11 | Infectious Diseases Prog Note ---
Assessment/Plan Assessment/Plan Assessment: Sepsis likey 2ry to UTI- r/o bacteremia -u/a wbc 10-15, nit neg, leuk +3; ucx E.coli (R amp;otherwise S) -02/11 Bcx p BLE edema superimposed with cellulitis Low grade fever; improving Leukocytosis, worsened; now improving CHF exacerbation -CXR: Cardiomegaly. Bilateral interstitial edema. Suspect left-sided pleural effusion CKD 3 HTN CHF Dm2 GERD former smoker MARYURI AFib S/p PPM Obesity Plan: -Switch empiric Zosyn #2 to Ceftriaxone for UTI and cellulitis -f/u cx -Monitor CBC/CMP, temperatures -f/u Bcx, sp cx -Cdiff if diarrhea Thank you for this consultation. Will continue to follow along with you. Discussed with RN Subjective Allergies: Coded Allergies: NO KNOWN DRUG ALLERGIES (Verified Allergy, Unknown, 06/08/15) Subjective afebrile in ~24hrs wbc improved Bcx p Objective Vital Signs Last 24 Hour Vital Signs Date Time Temp Pulse Resp B/P (MAP) Pulse Ox O2 Delivery O2 Flow Rate FiO2 02/12/19 09:00 Nasal Cannula 2.0 02/12/19 08:40 130/97 02/12/19 08:39 78 130/97 02/12/19 08:39 78 130/97 02/12/19 08:04 97 Nasal Cannula 2.0 28 02/12/19 08:04 78 18 97 Nasal Cannula 2.0 28 02/12/19 08:00 97.7 72 22 130/97 (108) 02/12/19 08:00 72 02/12/19 04:00 75 02/12/19 04:00 99.0 73 20 131/72 (91) 02/12/19 00:00 99.3 73 20 120/76 (91) 02/11/19 21:16 71 121/70 02/11/19 21:00 Nasal Cannula 2.0 02/11/19 20:00 99.1 71 20 100/58 (72) 02/11/19 19:52 96 Nasal Cannula 2.0 28 02/11/19 19:52 75 20 96 Nasal Cannula 2.0 28 02/11/19 16:00 99.1 75 20 121/79 (93) 96 02/11/19 15:48 70 02/11/19 12:00 96.3 77 20 114/65 (81) 94 02/11/19 11:28 74 Height (Feet): 5 Height (Inches): 8.00 Weight (Pounds): 225 Objective GENERAL: Slight short of breath in bed, oriented x3, in no acute distress. CARDIOVASCULAR: No murmurs. LUNGS: Poor air exchange. Slight crackles at bases. ABDOMEN: Bowel sounds positive. Nontender. Nondistended. EXTREMITIES: No cyanosis or clubbing. 2+ edema. NEUROLOGIC: The patient moves all extremities, slightly weak. Microbiology Date/Time Source Procedure Growth Status 02/10/19 09:45 Urine,Clean Catch Urine Culture - Final Escherichia Coli Complete Laboratory Tests Test 02/12/19 08:29 White Blood Count 20.1 K/UL (4.8-10.8) H Red Blood Count 4.53 M/UL (4.70-6.10) L Hemoglobin 10.5 G/DL (14.2-18.0) L Hematocrit 35.0 % (42.0-52.0) L Mean Corpuscular Volume 77 FL (80-99) L Mean Corpuscular Hemoglobin 23.1 PG (27.0-31.0) L Mean Corpuscular Hemoglobin Concent 29.9 G/DL (32.0-36.0) L Red Cell Distribution Width 17.9 % (11.6-14.8) H Platelet Count 249 K/UL (150-450) Mean Platelet Volume 6.6 FL (6.5-10.1) Neutrophils (%) (Auto) % (45.0-75.0) Lymphocytes (%) (Auto) % (20.0-45.0) Monocytes (%) (Auto) % (1.0-10.0) Eosinophils (%) (Auto) % (0.0-3.0) Basophils (%) (Auto) % (0.0-2.0) Differential Total Cells Counted 100 Neutrophils % (Manual) 90 % (45-75) H Lymphocytes % (Manual) 2 % (20-45) L Monocytes % (Manual) 7 % (1-10) Eosinophils % (Manual) 1 % (0-3) Basophils % (Manual) 0 % (0-2) Band Neutrophils 0 % (0-8) Platelet Estimate Adequate Platelet Morphology Normal Hypochromasia 1+ Anisocytosis 1+ Microcytosis 1+ Sodium Level 146 MMOL/L (136-145) H Potassium Level 3.5 MMOL/L (3.5-5.1) Chloride Level 105 MMOL/L (98-107) Carbon Dioxide Level 34 MMOL/L (21-32) H Anion Gap 7 mmol/L (5-15) Blood Urea Nitrogen 28 mg/dL (7-18) H Creatinine 1.6 MG/DL (0.55-1.30) H Estimat Glomerular Filtration Rate mL/min (>60) Glucose Level 116 MG/DL (74-106) H Calcium Level 8.3 MG/DL (8.5-10.1) L Current Medications Medications (Trade) Dose Ordered Sig/Lucas Route PRN Reason Start Time Stop Time Status Last Admin Dose Admin Acetaminophen/ Hydrocodone Bitart ([place] 5/325) 1 tab Q4H PRN ORAL Moderate Pain (Pain Scale 4-6) 02/08/19 16:15 02/15/19 16:14 02/10/19 21:11 Albuterol/ Ipratropium (Albuterol/ Ipratropium) 3 ml Q6H PRN HHN Shortness of Breath 02/08/19 16:15 02/13/19 16:14 02/10/19 19:12 Amiodarone HCl (Cordarone) 200 mg DAILY ORAL 02/09/19 09:00 03/11/19 08:59 02/12/19 08:37 Amlodipine Besylate (Norvasc) 5 mg DAILY ORAL 02/09/19 09:00 03/11/19 08:59 02/12/19 08:39 Furosemide (Lasix) 10 mg EVERY 12 HOURS IV 02/08/19 21:00 03/10/19 20:59 02/12/19 08:40 Losartan Potassium (Cozaar) 100 mg DAILY ORAL 02/09/19 09:00 03/11/19 08:59 02/12/19 08:40 Metolazone (Zaroxolyn) 2.5 mg Q12HR@0800,1999 ORAL 02/08/19 20:30 03/10/19 20:29 02/12/19 08:37 Metoprolol Tartrate (Lopressor) 25 mg Q12HR ORAL 02/08/19 21:00 03/10/19 20:59 02/12/19 08:39 Morphine Sulfate (Morphine Sulfate) 2 mg Q4H PRN IVP Severe Pain (Pain Scale 7-10) 02/08/19 16:15 02/15/19 16:14 02/12/19 08:44 Piperacillin Sod/ Tazobactam Sod 3.375 gm/Sodium Chloride 110 ml @ 27.5 mls/hr EVERY 8 HOURS IVPB 02/11/19 14:00 02/16/19 13:59 02/12/19 06:04 Potassium Chloride (K-Dur) 40 meq TWICE A DAY ORAL 02/11/19 09:00 03/13/19 08:59 02/12/19 08:37 Rivaroxaban (Xarelto) 15 mg DAILY ORAL 02/09/19 09:00 03/11/19 08:59 02/12/19 08:37 Zolpidem Tartrate (Ambien) 5 mg HSPRN PRN ORAL Insomnia 02/10/19 20:48 02/17/19 20:47 02/11/19 21:16 Dhara Alvarez M.D. Feb 12, 2019 11:11
[2019-02-12 12:00] VITALS: BP 139/87
[2019-02-12] MEDS: cefTRIAXone 1 GM in D5W 55 ML IVPB SCH (13:15)
--- NOTE | 2019-02-12 14:22 | NUR ---
PT note Attempted to see patient for treatment but patient requested to defer tx at this time due to SOB.
--- NOTE | 2019-02-12 15:04 | General Progress Note ---
Assessment/Plan Problem List: (1) UTI (urinary tract infection) ICD Codes: N39.0 - Urinary tract infection, site not specified SNOMED: 92340009 (2) Peripheral edema ICD Codes: R60.9 - Edema, unspecified SNOMED: 409280366 (3) Cardiomyopathy ICD Codes: I42.9 - Cardiomyopathy, unspecified SNOMED: 73605185 (4) Respiratory distress ICD Codes: R06.00 - Dyspnea, unspecified SNOMED: 592042461 (5) Arrhythmia ICD Codes: I49.9 - Cardiac arrhythmia, unspecified SNOMED: 99745418, 00139984, 130623564 (6) Dyspnea ICD Codes: R06.00 - Dyspnea, unspecified SNOMED: 570135775 (7) CHF (congestive heart failure) ICD Codes: I50.9 - Heart failure, unspecified SNOMED: 11572891 Qualifiers: Qualified Codes: I50.41 - Acute combined systolic (congestive) and diastolic (congestive) heart failure Status: stable, progressing Assessment/Plan: o2 pulm tx abx pt diet eval cbc bmp am Subjective Constitutional: Reports: weakness Respiratory: Reports: shortness of breath Allergies: Coded Allergies: NO KNOWN DRUG ALLERGIES (Verified Allergy, Unknown, 06/08/15) All Systems: reviewed and negative except above Subjective o2nc calm in bed Objective Last 24 Hour Vital Signs Date Time Temp Pulse Resp B/P (MAP) Pulse Ox O2 Delivery O2 Flow Rate FiO2 02/12/19 12:00 99.1 70 20 139/87 (104) 02/12/19 12:00 75 02/12/19 09:00 Nasal Cannula 2.0 02/12/19 08:40 130/97 02/12/19 08:39 78 130/97 02/12/19 08:39 78 130/97 02/12/19 08:04 97 Nasal Cannula 2.0 28 02/12/19 08:04 78 18 97 Nasal Cannula 2.0 28 02/12/19 08:00 97.7 72 22 130/97 (108) 02/12/19 08:00 72 02/12/19 04:00 75 02/12/19 04:00 99.0 73 20 131/72 (91) 02/12/19 00:00 99.3 73 20 120/76 (91) 10/25/19 21:16 71 121/70 02/11/19 21:00 Nasal Cannula 2.0 02/11/19 20:00 99.1 71 20 100/58 (72) 02/11/19 19:52 96 Nasal Cannula 2.0 28 02/11/19 19:52 75 20 96 Nasal Cannula 2.0 28 02/11/19 16:00 99.1 75 20 121/79 (93) 96 02/11/19 15:48 70 Intake and Output 02/11/19 02/12/19 19:00 07:00 Intake Total 1045 ml Output Total 502 ml Balance 543 ml Intake Oral 1045 ml Output Urine Total 502 ml # Voids 127 Laboratory Tests 02/12/19 08:29: White Blood Count 20.1H, Red Blood Count 4.53L, Hemoglobin 10.5L, Hematocrit 35.0L, Mean Corpuscular Volume 77L, Mean Corpuscular Hemoglobin 23.1L, Mean Corpuscular Hemoglobin Concent 29.9L, Red Cell Distribution Width 17.9H, Platelet Count 249, Mean Platelet Volume 6.6, Neutrophils (%) (Auto) , Lymphocytes (%) (Auto) , Monocytes (%) (Auto) , Eosinophils (%) (Auto) , Basophils (%) (Auto) , Differential Total Cells Counted 100, Neutrophils % ( Manual) 90H, Lymphocytes % (Manual) 2L, Monocytes % (Manual) 7, Eosinophils % ( Manual) 1, Basophils % (Manual) 0, Band Neutrophils 0, Platelet Estimate Adequate, Platelet Morphology Normal, Hypochromasia 1+, Anisocytosis 1+, Microcytosis 1+, Sodium Level 146H, Potassium Level 3.5, Chloride Level 105, Carbon Dioxide Level 34H, Anion Gap 7, Blood Urea Nitrogen 28H, Creatinine 1.6H , Estimat Glomerular Filtration Rate , Glucose Level 116H, Calcium Level 8.3L Height (Feet): 5 Height (Inches): 8.00 Weight (Pounds): 225 General Appearance: lethargic EENT: normal ENT inspection Neck: normal alignment Cardiovascular: normal peripheral pulses, normal rate, regular rhythm Respiratory/Chest: chest wall non-tender, lungs clear, normal breath sounds Abdomen: normal bowel sounds, non tender, soft Edema: 2+ Pedal (L), 2+ Pedal (R) Edema: mild edema Neurologic: motor weakness Skin: normal pigmentation, warm/dry Santizo,Jose Elias Chi-Maryan DO Feb 12, 2019 15:04
--- NOTE | 2019-02-12 15:25 | Nephrology Progress Note ---
Assessment/Plan Assessment 1.KATHARINA 2.CKD 3.hypokalemia 4.CHF 5.HTN 6.hypocalcemia 7.hypernatremia Plan PLAN lower dose of lasix bladder scan avoid NSIAD Daily wt monitoring in and out out Subjective Subjective feeling better had 2 episode of hematuria less SOB Objective Objective Last 24 Hour Vital Signs Date Time Temp Pulse Resp B/P (MAP) Pulse Ox O2 Delivery O2 Flow Rate FiO2 02/12/19 12:00 99.1 70 20 139/87 (104) 02/12/19 12:00 75 02/12/19 09:00 Nasal Cannula 2.0 02/12/19 08:40 130/97 02/12/19 08:39 78 130/97 02/12/19 08:39 78 130/97 02/12/19 08:04 97 Nasal Cannula 2.0 28 02/12/19 08:04 78 18 97 Nasal Cannula 2.0 28 02/12/19 08:00 97.7 72 22 130/97 (108) 02/12/19 08:00 72 02/12/19 04:00 75 02/12/19 04:00 99.0 73 20 131/72 (91) 02/12/19 00:00 99.3 73 20 120/76 (91) 02/11/19 21:16 71 121/70 02/11/19 21:00 Nasal Cannula 2.0 02/11/19 20:00 99.1 71 20 100/58 (72) 02/11/19 19:52 96 Nasal Cannula 2.0 28 02/11/19 19:52 75 20 96 Nasal Cannula 2.0 28 02/11/19 16:00 99.1 75 20 121/79 (93) 96 02/11/19 15:48 70 Intake and Output 02/11/19 02/12/19 19:00 07:00 Intake Total 1045 ml Output Total 502 ml Balance 543 ml Intake Oral 1045 ml Output Urine Total 502 ml # Voids 127 Laboratory Tests 02/12/19 08:29: White Blood Count 20.1H, Red Blood Count 4.53L, Hemoglobin 10.5L, Hematocrit 35.0L, Mean Corpuscular Volume 77L, Mean Corpuscular Hemoglobin 23.1L, Mean Corpuscular Hemoglobin Concent 29.9L, Red Cell Distribution Width 17.9H, Platelet Count 249, Mean Platelet Volume 6.6, Neutrophils (%) (Auto) , Lymphocytes (%) (Auto) , Monocytes (%) (Auto) , Eosinophils (%) (Auto) , Basophils (%) (Auto) , Differential Total Cells Counted 100, Neutrophils % ( Manual) 90H, Lymphocytes % (Manual) 2L, Monocytes % (Manual) 7, Eosinophils % ( Manual) 1, Basophils % (Manual) 0, Band Neutrophils 0, Platelet Estimate Adequate, Platelet Morphology Normal, Hypochromasia 1+, Anisocytosis 1+, Microcytosis 1+, Sodium Level 146H, Potassium Level 3.5, Chloride Level 105, Carbon Dioxide Level 34H, Anion Gap 7, Blood Urea Nitrogen 28H, Creatinine 1.6H , Estimat Glomerular Filtration Rate , Glucose Level 116H, Calcium Level 8.3L Height (Feet): 5 Height (Inches): 8.00 Weight (Pounds): 225 Objective HEENT: Atraumatic and normocephalic. Anicteric. Pupils are equal, round, and reactive to light and accommodation. Extraocular muscles intact. NECK: JVP elevated about 15 cm. No carotid bruit. Carotid upstrokes 2+ bilaterally. CARDIOVASCULAR SYSTEM: Normal S1 and S2. Regular rhythm. A 2/6 midsystolic murmur at the left sternal border. PMI is at fourth intercostal space in the midclavicular line. LUNGS: Bibasilar crackles. ABDOMEN: Soft, nontender, and nondistended. No hepatosplenomegaly. Positive bowel sounds. EXTREMITIES: There is 4+ bilateral pitting edema in both legs. Lina Pollard MD Feb 12, 2019 15:25
[2019-02-12 15:50] VITALS: BP 150/75
[2019-02-12] MEDS ORDERED: Tubing IV Secondary IV ONE (16:28)
[2019-02-12] MEDS ORDERED: NS 275ml ONE (16:28)
--- NOTE | 2019-02-12 19:20 | NUR ---
HAND-OFF: Report given to Duarte DIXON. Pt remains stable.
--- NOTE | 2019-02-12 19:30 | NUR ---
NURSE NOTES: Received patient from Min RN. Patient in bed, on 2L NC, no s/s of respiratory distress. Bed in low position, locked, bed alarm on, call light with reach.
[2019-02-12 20:26] VITALS: BP 143/69
[2019-02-12] MEDS: HYDROcodone/Acetamin 5/325 tab ORAL PRN (20:39)
[2019-02-12] MEDS: Albuterol/Ipratropium 3ml neb HHN PRN (21:08)
[2019-02-12] MEDS: Zolpidem 5mg tab ORAL PRN (23:47)
[2019-02-12] MEDS: Guaifenesin/DM 10ml syrup ORAL PRN (23:47)
[2019-02-13 00:10] VITALS: BP 138/77
[2019-02-13 04:00] VITALS: BP 152/97
--- NOTE | 2019-02-13 04:29 | NUR ---
NURSE NOTES: Notified Dr. Alvarez regarding patient's temp of 101.5 and left message with her answering service.
--- NOTE | 2019-02-13 04:35 | NUR ---
NURSE NOTES: Applied cold compress on patient.
[2019-02-13] MEDS: Guaifenesin/DM 10ml syrup ORAL PRN ×2 (06:56→19:33)
--- NOTE | 2019-02-13 07:12 | NUR ---
NURSE NOTES: No response from Dr. Alvarez but patient has been afebrile, latest temp 98.6 oral.
--- NOTE | 2019-02-13 07:20 | NUR ---
NURSE NOTES: Received report from Duarte DIXON. Patient awake and orientedx3 and able to make needs known. Bed in it's lowest position and locked. No c/o pain. No acute distress noted. Noted Left chest pacemaker. 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 Call light within easy reach. Will continue to plan of care.
[2019-02-13 07:40] LABS: BASOPHILS % (AUTO) 0.4 % (0.0-2.0); EOSINOPHILS % (AUTO) 0.6 % (0.0-3.0); HEMATOCRIT 35.2 % (42.0-52.0); HEMOGLOBIN 10.5 G/DL (14.2-18.0); LYMPHOCYTES % (AUTO) 7.3 % (20.0-45.0); MEAN CORPUSCULAR VOLUME 77 FL (80-99); MONOCYTES % (AUTO) 8.5 % (1.0-10.0); NEUTROPHILS % (AUTO) 83.2 % (45.0-75.0); PLATELET COUNT 260 K/UL (150-450); RED BLOOD COUNT 4.56 M/UL (4.70-6.10); WHITE BLOOD COUNT 11.8 K/UL (4.8-10.8)
--- NOTE | 2019-02-13 07:53 | General Progress Note ---
Assessment/Plan Problem List: (1) UTI (urinary tract infection) ICD Codes: N39.0 - Urinary tract infection, site not specified SNOMED: 04833974 (2) Peripheral edema ICD Codes: R60.9 - Edema, unspecified SNOMED: 512774092 (3) Cardiomyopathy ICD Codes: I42.9 - Cardiomyopathy, unspecified SNOMED: 15774137 (4) Respiratory distress ICD Codes: R06.00 - Dyspnea, unspecified SNOMED: 320494665 (5) Arrhythmia ICD Codes: I49.9 - Cardiac arrhythmia, unspecified SNOMED: 92855446, 85498505, 359167941 (6) Dyspnea ICD Codes: R06.00 - Dyspnea, unspecified SNOMED: 725091632 (7) CHF (congestive heart failure) ICD Codes: I50.9 - Heart failure, unspecified SNOMED: 48861281 Qualifiers: Qualified Codes: I50.41 - Acute combined systolic (congestive) and diastolic (congestive) heart failure Status: stable, progressing Assessment/Plan: o2 pulm tx abx pt diet eval cbc bmp am aru eval Subjective Constitutional: Reports: weakness Respiratory: Reports: cough Allergies: Coded Allergies: NO KNOWN DRUG ALLERGIES (Verified Allergy, Unknown, 06/08/15) All Systems: reviewed and negative except above Subjective o2nc calm in bed Objective Last 24 Hour Vital Signs Date Time Temp Pulse Resp B/P (MAP) Pulse Ox O2 Delivery O2 Flow Rate FiO2 02/13/19 07:01 98.6 02/13/19 05:06 99.1 02/13/19 04:00 101.5 74 22 152/97 (115) 94 02/13/19 04:00 74 02/13/19 00:10 99.1 71 20 138/77 (97) 93 02/13/19 00:00 69 02/12/19 21:30 100.4 02/12/19 21:18 98 20 98 Nasal Cannula 2.0 02/12/19 21:08 106 20 94 Nasal Cannula 2.0 02/12/19 21:00 Nasal Cannula 2.0 02/12/19 20:38 74 143/69 02/12/19 20:29 74 18 96 Nasal Cannula 2.0 28 02/12/19 20:29 96 Nasal Cannula 2.0 28 10/26/19 20:26 100.4 81 24 143/69 (93) 94 02/12/19 20:00 70 02/12/19 16:00 71 02/12/19 15:50 98.2 74 20 150/75 (100) 02/12/19 12:00 99.1 70 20 139/87 (104) 02/12/19 12:00 75 02/12/19 09:00 Nasal Cannula 2.0 02/12/19 08:40 130/97 02/12/19 08:39 78 130/97 02/12/19 08:39 78 130/97 02/12/19 08:04 97 Nasal Cannula 2.0 28 02/12/19 08:04 78 18 97 Nasal Cannula 2.0 28 02/12/19 08:00 97.7 72 22 130/97 (108) 02/12/19 08:00 72 Intake and Output 02/12/19 02/13/19 19:00 07:00 Intake Total 720 ml Output Total 840 ml Balance -120 ml Intake Oral 720 ml Output Urine Total 840 ml Laboratory Tests 02/12/19 08:29: White Blood Count 20.1H, Red Blood Count 4.53L, Hemoglobin 10.5L, Hematocrit 35.0L, Mean Corpuscular Volume 77L, Mean Corpuscular Hemoglobin 23.1L, Mean Corpuscular Hemoglobin Concent 29.9L, Red Cell Distribution Width 17.9H, Platelet Count 249, Mean Platelet Volume 6.6, Neutrophils (%) (Auto) , Lymphocytes (%) (Auto) , Monocytes (%) (Auto) , Eosinophils (%) (Auto) , Basophils (%) (Auto) , Differential Total Cells Counted 100, Neutrophils % ( Manual) 90H, Lymphocytes % (Manual) 2L, Monocytes % (Manual) 7, Eosinophils % ( Manual) 1, Basophils % (Manual) 0, Band Neutrophils 0, Platelet Estimate Adequate, Platelet Morphology Normal, Hypochromasia 1+, Anisocytosis 1+, Microcytosis 1+, Sodium Level 146H, Potassium Level 3.5, Chloride Level 105, Carbon Dioxide Level 34H, Anion Gap 7, Blood Urea Nitrogen 28H, Creatinine 1.6H , Estimat Glomerular Filtration Rate , Glucose Level 116H, Calcium Level 8.3L 02/13/19 05:30: White Blood Count 11.8H, Red Blood Count 4.56L, Hemoglobin 10.5L, Hematocrit 35.2L, Mean Corpuscular Volume 77L, Mean Corpuscular Hemoglobin 23.0L, Mean Corpuscular Hemoglobin Concent 29.8L, Red Cell Distribution Width 18.0H, Platelet Count 260, Mean Platelet Volume 5.9L, Neutrophils (%) (Auto) 83.2H, Lymphocytes (%) (Auto) 7.3L, Monocytes (%) (Auto) 8.5, Eosinophils (%) (Auto) 0.6, Basophils (%) (Auto) 0.4, Sodium Level [Pending], Potassium Level [Pending] , Chloride Level [Pending], Carbon Dioxide Level [Pending], Blood Urea Nitrogen [Pending], Creatinine [Pending], Estimat Glomerular Filtration Rate [Pending], Glucose Level [Pending], Calcium Level [Pending] Height (Feet): 5 Height (Inches): 8.00 Weight (Pounds): 225 General Appearance: lethargic EENT: normal ENT inspection Neck: normal alignment Cardiovascular: normal peripheral pulses, normal rate, regular rhythm Respiratory/Chest: chest wall non-tender, lungs clear, normal breath sounds Abdomen: normal bowel sounds, non tender, soft Extremities: normal inspection Edema: 2+ Pedal (L), 2+ Pedal (R) Neurologic: responsive, motor weakness Skin: normal pigmentation, warm/dry Jose Elias Santizo DO Feb 13, 2019 07:52
[2019-02-13 08:00] VITALS: BP 128/71
[2019-02-13 08:09] LABS: ANION GAP 7 mmol/L (5-15); BLOOD UREA NITROGEN 26 mg/dL (7-18); CALCIUM 8.8 MG/DL (8.5-10.1); CARBON DIOXIDE 35 MMOL/L (21-32); CHLORIDE 104 MMOL/L (98-107); CREATININE 1.6 MG/DL (0.55-1.30); POTASSIUM 3.7 MMOL/L (3.5-5.1); SODIUM 146 MMOL/L (136-145)
[2019-02-13] MEDS: metOLazone 2.5 MG TAB ORAL SCH ×2 (08:31→20:40)
[2019-02-13] MEDS: Amiodarone 200mg tab ORAL SCH (08:59)
[2019-02-13] MEDS: Xarelto 15mg tab ORAL SCH ×2 (08:59→09:06)
[2019-02-13] MEDS: Metoprolol 25mg tab ORAL SCH ×2 (08:59→20:40)
[2019-02-13] MEDS: Losartan 50mg tab ORAL SCH (09:00)
[2019-02-13 12:00] VITALS: BP 131/72
[2019-02-13] MEDS: cefTRIAXone 1 GM in D5W 55 ML IVPB SCH (14:54)
[2019-02-13 16:00] VITALS: BP 139/82
[2019-02-13] MEDS: Morphine Sulfate 2mg/ml Inj(IV/IM USE ONLY) IVP PRN (19:29)
--- NOTE | 2019-02-13 19:29 | NUR ---
HAND-OFF: Report given to Renetta DIXON. Pt remains stable.
[2019-02-13 20:00] VITALS: BP 149/94
--- NOTE | 2019-02-13 20:00 | NUR ---
NURSE NOTES: RECEIVED PATIENT RESTING IN BED. FALL PRECAUTIONS IN PLACE: CALL LIGHT, BEDSIDE TABLE AND URINAL WITHIN REACH, BED IN LOW POSITION AND BED ALARM ON. PLAN OF CARE REVIEWED.
[2019-02-13] MEDS: Zolpidem 5mg tab ORAL PRN (23:13)
[2019-02-14] VITALS: BP 106/58
[2019-02-14] MEDS: Guaifenesin/DM 10ml syrup ORAL PRN ×3 (02:39→21:10)
[2019-02-14 04:00] VITALS: BP 154/94
[2019-02-14 07:11] LABS: BASOPHILS % (AUTO) 0.9 % (0.0-2.0); EOSINOPHILS % (AUTO) 4.5 % (0.0-3.0); HEMATOCRIT 36.1 % (42.0-52.0); HEMOGLOBIN 10.7 G/DL (14.2-18.0); LYMPHOCYTES % (AUTO) 15.7 % (20.0-45.0); MEAN CORPUSCULAR VOLUME 77 FL (80-99); PLATELET COUNT 294 K/UL (150-450); RED BLOOD COUNT 4.71 M/UL (4.70-6.10); RED CELL DISTRIBUTION WIDTH 18.2 % (11.6-14.8); WHITE BLOOD COUNT 8.6 K/UL (4.8-10.8)
--- NOTE | 2019-02-14 07:15 | NUR ---
HAND-OFF: Report given to Katya TANNER RN. PATIENT RESTING IN BED, NO SIGNS OF DISTRESS NOTED.
[2019-02-14 07:23] LABS: ANION GAP 6 mmol/L (5-15); BLOOD UREA NITROGEN 25 mg/dL (7-18); CALCIUM 8.4 MG/DL (8.5-10.1); CARBON DIOXIDE 37 MMOL/L (21-32); CHLORIDE 102 MMOL/L (98-107); CREATININE 1.4 MG/DL (0.55-1.30); POTASSIUM 3.7 MMOL/L (3.5-5.1); SODIUM 144 MMOL/L (136-145)
--- NOTE | 2019-02-14 07:57 | NUR ---
NURSE NOTES: Pt in bed in bed with alarm on, HOB in high fowlers, call light at bedside, pt complaining of SOB spoke to Md Santizo ordered PRN breathing treatment, Notified RT, RT went to room, pt denies pain, pt compliant with medical treatment, pt has a fluid restriction of 1200MLs per day, pt gait unsteady, pt has pacemaker showing V-Pace. pt denies chest pain, however, lungs sounds were not cleat and sounded congested.
--- NOTE | 2019-02-14 08:04 | General Progress Note ---
Assessment/Plan Problem List: (1) UTI (urinary tract infection) ICD Codes: N39.0 - Urinary tract infection, site not specified SNOMED: 56366527 (2) Peripheral edema ICD Codes: R60.9 - Edema, unspecified SNOMED: 764559738 (3) Cardiomyopathy ICD Codes: I42.9 - Cardiomyopathy, unspecified SNOMED: 17591031 (4) Respiratory distress ICD Codes: R06.00 - Dyspnea, unspecified SNOMED: 878758873 (5) Arrhythmia ICD Codes: I49.9 - Cardiac arrhythmia, unspecified SNOMED: 63484807, 13218483, 685837531 (6) Dyspnea ICD Codes: R06.00 - Dyspnea, unspecified SNOMED: 828374524 (7) CHF (congestive heart failure) ICD Codes: I50.9 - Heart failure, unspecified SNOMED: 81765008 Qualifiers: Qualified Codes: I50.41 - Acute combined systolic (congestive) and diastolic (congestive) heart failure Status: stable, progressing Assessment/Plan: o2 pulm tx abx pt diet eval cbc bmp am aru eval Subjective Constitutional: Reports: weakness Respiratory: Reports: shortness of breath Allergies: Coded Allergies: NO KNOWN DRUG ALLERGIES (Verified Allergy, Unknown, 06/08/15) All Systems: reviewed and negative except above Subjective o2nc calm in bed Objective Last 24 Hour Vital Signs Date Time Temp Pulse Resp B/P (MAP) Pulse Ox O2 Delivery O2 Flow Rate FiO2 02/14/19 04:00 98.8 72 19 154/94 (114) 94 02/14/19 04:00 74 02/14/19 00:00 98.4 79 20 106/58 (74) 95 02/14/19 00:00 75 02/13/19 21:00 Nasal Cannula 2.0 02/13/19 20:40 67 149/94 02/13/19 20:00 98.2 67 20 149/94 (112) 93 02/13/19 20:00 81 02/13/19 18:59 97 Nasal Cannula 2.0 28 02/13/19 18:59 76 18 97 Nasal Cannula 2.0 28 02/13/19 16:00 71 02/13/19 16:00 98.2 71 19 139/82 (101) 95 02/13/19 12:00 97.6 73 19 131/72 (91) 95 02/13/19 12:00 70 02/13/19 09:00 Nasal Cannula 2.0 02/13/19 09:00 128/71 02/13/19 09:00 92 128/71 02/13/19 08:59 92 128/71 Intake and Output 02/13/19 02/14/19 19:00 07:00 Intake Total 773 ml 240 ml Output Total 1580 ml 700 ml Balance -807 ml -460 ml Intake Oral 718 ml 240 ml IV Total 55 ml Output Urine Total 1580 ml 700 ml # Voids 1 6 Laboratory Tests 02/14/19 05:20: White Blood Count 8.6, Red Blood Count 4.71, Hemoglobin 10.7L, Hematocrit 36.1L , Mean Corpuscular Volume 77L, Mean Corpuscular Hemoglobin 22.8L, Mean Corpuscular Hemoglobin Concent 29.7L, Red Cell Distribution Width 18.2H, Platelet Count 294, Mean Platelet Volume 6.2L, Neutrophils (%) (Auto) 63.0, Lymphocytes (%) (Auto) 15.7L, Monocytes (%) (Auto) 16.0H, Eosinophils (%) (Auto ) 4.5H, Basophils (%) (Auto) 0.9, Sodium Level 144, Potassium Level 3.7, Chloride Level 102, Carbon Dioxide Level 37H, Anion Gap 6, Blood Urea Nitrogen 25H, Creatinine 1.4H, Estimat Glomerular Filtration Rate , Glucose Level 110H, Calcium Level 8.4L Height (Feet): 5 Height (Inches): 8.00 Weight (Pounds): 221 General Appearance: lethargic EENT: normal ENT inspection Neck: normal alignment Cardiovascular: normal peripheral pulses, normal rate, regular rhythm Respiratory/Chest: chest wall non-tender, lungs clear, normal breath sounds Abdomen: normal bowel sounds, non tender, soft Extremities: normal inspection Edema: 2+ Pedal (L), 2+ Pedal (R) Edema: mild edema Neurologic: responsive, motor weakness Skin: normal pigmentation, warm/dry Jose Elias Santizo DO Feb 14, 2019 08:04
[2019-02-14 08:15] VITALS: BP 152/92
[2019-02-14] MEDS: Losartan 50mg tab ORAL SCH (08:49)
[2019-02-14] MEDS: Amiodarone 200mg tab ORAL SCH (08:50)
[2019-02-14] MEDS: Xarelto 15mg tab ORAL SCH (08:50)
[2019-02-14] MEDS: Metoprolol 25mg tab ORAL SCH ×2 (08:50→21:10)
[2019-02-14] MEDS: metOLazone 2.5 MG TAB ORAL SCH ×2 (08:51→21:09)
[2019-02-14] MEDS: Albuterol/Ipratropium 3ml neb HHN PRN ×2 (10:04→17:11)
[2019-02-14 12:00] VITALS: BP 126/78
--- NOTE | 2019-02-14 12:06 | Cardiology Progress Note ---
Assessment/Plan Assessment/Plan 1. Acute on chronic heart failure with normal EF. Beta-natriuretic peptide is elevated. Chest x-ray shows bilateral pulmonary edema. Continue metolazone and furosemide. 2D echocardiography shows normal LVEF with possible pseudo-normal LV physiology c/w moderately elevated LA pressure. 2. Paroxysmal atrial fibrillation, continue amiodarone and Xarelto. 3. History of hypertension, increase amlodipine dose, continue metoprolol. 4. 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 5. CKD with KATHARINA, creatinine down to 1.6. 6. Prediabetes. 7. Severe pulmonary HTN. Subjective Subjective Sinus rhythm at rate of 70. Objective Last 24 Hour Vital Signs Date Time Temp Pulse Resp B/P (MAP) Pulse Ox O2 Delivery O2 Flow Rate FiO2 02/14/19 10:26 Nasal Cannula 2.0 02/14/19 10:04 98 Nasal Cannula 2.0 28 02/14/19 10:04 70 20 98 Nasal Cannula 2.0 02/14/19 10:04 72 20 99 Nasal Cannula 2.0 28 70 20 98 02/14/19 08:50 73 152/92 02/14/19 08:50 73 152/92 02/14/19 08:49 152/92 02/14/19 08:15 98.5 73 24 152/92 (112) 94 02/14/19 07:50 70 02/14/19 04:00 98.8 72 19 154/94 (114) 94 02/14/19 04:00 74 02/14/19 00:00 98.4 79 20 106/58 (74) 95 02/14/19 00:00 75 02/13/19 21:00 Nasal Cannula 2.0 02/13/19 20:40 67 149/94 02/13/19 20:00 98.2 67 20 149/94 (112) 93 02/13/19 20:00 81 02/13/19 18:59 97 Nasal Cannula 2.0 02/13/19 18:59 76 18 97 Nasal Cannula 2.0 28 02/13/19 16:00 71 02/13/19 16:00 98.2 71 19 139/82 (101) 95 Intake and Output 02/13/19 02/14/19 19:00 07:00 Intake Total 773 ml 240 ml Output Total 1580 ml 700 ml Balance -807 ml -460 ml Intake Oral 718 ml 240 ml IV Total 55 ml Output Urine Total 1580 ml 700 ml # Voids 1 6 2D Echo: LVEF 60%, Mild AR, Grade II LVDD, MICHELLE, RVE, RVSP 66 mmHg Laboratory Tests Test 02/14/19 05:20 White Blood Count 8.6 K/UL (4.8-10.8) Red Blood Count 4.71 M/UL (4.70-6.10) Hemoglobin 10.7 G/DL (14.2-18.0) L Hematocrit 36.1 % (42.0-52.0) L Mean Corpuscular Volume 77 FL (80-99) L Mean Corpuscular Hemoglobin 22.8 PG (27.0-31.0) L Mean Corpuscular Hemoglobin Concent 29.7 G/DL (32.0-36.0) L Red Cell Distribution Width 18.2 % (11.6-14.8) H Platelet Count 294 K/UL (150-450) Mean Platelet Volume 6.2 FL (6.5-10.1) L Neutrophils (%) (Auto) 63.0 % (45.0-75.0) Lymphocytes (%) (Auto) 15.7 % (20.0-45.0) L Monocytes (%) (Auto) 16.0 % (1.0-10.0) H Eosinophils (%) (Auto) 4.5 % (0.0-3.0) H Basophils (%) (Auto) 0.9 % (0.0-2.0) Sodium Level 144 MMOL/L (136-145) Potassium Level 3.7 MMOL/L (3.5-5.1) Chloride Level 102 MMOL/L (98-107) Carbon Dioxide Level 37 MMOL/L (21-32) H Anion Gap 6 mmol/L (5-15) Blood Urea Nitrogen 25 mg/dL (7-18) H Creatinine 1.4 MG/DL (0.55-1.30) H Estimat Glomerular Filtration Rate mL/min (>60) Glucose Level 110 MG/DL (74-106) H Calcium Level 8.4 MG/DL (8.5-10.1) L Microbiology Date/Time Source Procedure Growth Status 02/11/19 19:35 Blood Blood Culture - Preliminary NO GROWTH AFTER 48 HOURS Resulted 02/11/19 19:20 Blood Blood Culture - Preliminary NO GROWTH AFTER 48 HOURS Resulted Objective HEENT: Atraumatic and normocephalic. Anicteric. Pupils are equal, round, and reactive to light and accommodation. Extraocular muscles intact. NECK: JVP elevated about 15 cm. No carotid bruit. Carotid upstrokes 2+ bilaterally. CARDIOVASCULAR SYSTEM: Normal S1 and S2. Regular rhythm. A 2/6 midsystolic murmur at the left sternal border. PMI is at fourth intercostal space in the midclavicular line. LUNGS: Bibasilar crackles. ABDOMEN: Soft, nontender, and nondistended. No hepatosplenomegaly. Positive bowel sounds. EXTREMITIES: There is 4+ bilateral pitting edema in both legs. Yosi Shields MD Feb 14, 2019 12:05
[2019-02-14] MEDS: cefTRIAXone 1 GM in D5W 55 ML IVPB SCH (14:57)
[2019-02-14 16:00] VITALS: BP 139/82
--- NOTE | 2019-02-14 16:48 | Infectious Diseases Prog Note ---
Assessment/Plan Assessment/Plan Assessment: Sepsis likey 2ry to UTI- r/o bacteremia -u/a wbc 10-15, nit neg, leuk +3; ucx E.coli (R amp;otherwise S) -02/11 Bcx ngtd BLE edema superimposed with cellulitis Low grade fever; improving Leukocytosis, worsened; now improving CHF exacerbation -CXR: Cardiomegaly. Bilateral interstitial edema. Suspect left-sided pleural effusion CKD 3 HTN CHF Dm2 GERD former smoker MARYURI AFib S/p PPM Obesity Plan: Ceftriaxone #3/5. can complete course with keflex. -02/12 SP Zosyn #2 -f/u cx -Monitor CBC/CMP, temperatures -f/u Bcx, sp cx -Cdiff if diarrhea Thank you for this consultation. [facility] will continue to follow along with you. Discussed with RN Subjective Allergies: Coded Allergies: NO KNOWN DRUG ALLERGIES (Verified Allergy, Unknown, 06/08/15) Subjective Afebrile for 24hrs States he feels the same No dysuria, flank pain, abdominal pain Objective Vital Signs Last 24 Hour Vital Signs Date Time Temp Pulse Resp B/P (MAP) Pulse Ox O2 Delivery O2 Flow Rate FiO2 02/14/19 12:00 98.4 76 24 126/78 (94) 95 02/14/19 11:50 78 02/14/19 10:26 Nasal Cannula 2.0 02/14/19 10:04 98 Nasal Cannula 2.0 28 02/14/19 10:04 70 20 98 Nasal Cannula 2.0 28 02/14/19 10:04 72 20 99 Nasal Cannula 2.0 28 70 20 98 02/14/19 08:50 73 152/92 02/14/19 08:50 73 152/92 02/14/19 08:49 152/92 02/14/19 08:15 98.5 73 24 152/92 (112) 94 02/14/19 07:50 70 02/14/19 04:00 98.8 72 19 154/94 (114) 94 02/14/19 04:00 74 02/14/19 00:00 98.4 79 20 106/58 (74) 95 02/14/19 00:00 75 02/13/19 21:00 Nasal Cannula 2.0 02/13/19 20:40 67 149/94 02/13/19 20:00 98.2 67 20 149/94 (112) 93 02/13/19 20:00 81 02/13/19 18:59 97 Nasal Cannula 2.0 28 02/13/19 18:59 76 18 97 Nasal Cannula 2.0 28 Height (Feet): 5 Height (Inches): 8.00 Weight (Pounds): 221 General Appearance: no acute distress HEENT: anicteric Respiratory/Chest: chest wall non-tender, normal breath sounds, no respiratory distress, no accessory muscle use Cardiovascular: normal rate, regular rhythm Abdomen: normal bowel sounds, soft, non tender Extremities: other - Edema improving Neurologic/Psychiatric: alert, normal mood/affect Microbiology Date/Time Source Procedure Growth Status 02/11/19 19:35 Blood Blood Culture - Preliminary NO GROWTH AFTER 48 HOURS Resulted 02/11/19 19:20 Blood Blood Culture - Preliminary NO GROWTH AFTER 48 HOURS Resulted Laboratory Tests Test 02/14/19 05:20 White Blood Count 8.6 K/UL (4.8-10.8) Red Blood Count 4.71 M/UL (4.70-6.10) Hemoglobin 10.7 G/DL (14.2-18.0) L Hematocrit 36.1 % (42.0-52.0) L Mean Corpuscular Volume 77 FL (80-99) L Mean Corpuscular Hemoglobin 22.8 PG (27.0-31.0) L Mean Corpuscular Hemoglobin Concent 29.7 G/DL (32.0-36.0) L Red Cell Distribution Width 18.2 % (11.6-14.8) H Platelet Count 294 K/UL (150-450) Mean Platelet Volume 6.2 FL (6.5-10.1) L Neutrophils (%) (Auto) 63.0 % (45.0-75.0) Lymphocytes (%) (Auto) 15.7 % (20.0-45.0) L Monocytes (%) (Auto) 16.0 % (1.0-10.0) H Eosinophils (%) (Auto) 4.5 % (0.0-3.0) H Basophils (%) (Auto) 0.9 % (0.0-2.0) Sodium Level 144 MMOL/L (136-145) Potassium Level 3.7 MMOL/L (3.5-5.1) Chloride Level 102 MMOL/L (98-107) Carbon Dioxide Level 37 MMOL/L (21-32) H Anion Gap 6 mmol/L (5-15) Blood Urea Nitrogen 25 mg/dL (7-18) H Creatinine 1.4 MG/DL (0.55-1.30) H Estimat Glomerular Filtration Rate mL/min (>60) Glucose Level 110 MG/DL (74-106) H Calcium Level 8.4 MG/DL (8.5-10.1) L Current Medications Medications (Trade) Dose Ordered Sig/Lucas Route PRN Reason Start Time Stop Time Status Last Admin Dose Admin Acetaminophen (Tylenol) 650 mg Q4H PRN ORAL Mild Pain/Temp > 100.5 02/13/19 08:45 03/15/19 08:44 02/13/19 08:59 Acetaminophen/ Hydrocodone Bitart (Sheldon 5/325) 1 tab Q4H PRN ORAL Moderate Pain (Pain Scale 4-6) 02/08/19 16:15 02/15/19 16:14 02/12/19 20:39 Albuterol/ Ipratropium (Albuterol/ Ipratropium) 3 ml Q4H PRN HHN Shortness of Breath 02/14/19 08:00 02/19/19 07:59 02/14/19 10:04 Amiodarone HCl (Cordarone) 200 mg DAILY ORAL 02/09/19 09:00 03/11/19 08:59 02/14/19 08:50 Amlodipine Besylate (Norvasc) 10 mg DAILY ORAL 02/15/19 09:00 03/17/19 08:59 Ceftriaxone Sodium 1 gm/ Dextrose 55 ml @ 110 mls/hr Q24H IVPB 02/12/19 14:00 02/19/19 13:59 02/14/19 14:57 Furosemide (Lasix) 20 mg EVERY 12 HOURS IV 02/14/19 21:00 03/16/19 20:59 Guaifenesin/ Dextromethorphan (Robitussin DM Syrup) 15 ml Q6H PRN ORAL For Cough 02/12/19 23:00 03/14/19 22:59 02/14/19 14:57 Losartan Potassium (Cozaar) 100 mg DAILY ORAL 02/09/19 09:00 03/11/19 08:59 10/28/19 08:49 Metolazone (Zaroxolyn) 2.5 mg Q12HR@0800,2000 ORAL 02/08/19 20:30 03/10/19 20:29 02/14/19 08:51 Metoprolol Tartrate (Lopressor) 25 mg Q12HR ORAL 02/08/19 21:00 03/10/19 20:59 02/14/19 08:50 Morphine Sulfate (Morphine Sulfate) 2 mg Q4H PRN IVP Severe Pain (Pain Scale 7-10) 02/08/19 16:15 02/15/19 16:14 02/13/19 19:29 Potassium Chloride (K-Dur) 40 meq TWICE A DAY ORAL 02/11/19 09:00 03/13/19 08:59 02/14/19 08:50 Rivaroxaban (Xarelto) 15 mg DAILY ORAL 02/09/19 09:00 03/11/19 08:59 02/14/19 08:50 Zolpidem Tartrate (Ambien) 5 mg HSPRN PRN ORAL Insomnia 02/10/19 20:48 02/17/19 20:47 02/13/19 23:13 Josefa Purdy MD Feb 14, 2019 16:48
[2019-02-14] MEDS: Morphine Sulfate 2mg/ml Inj(IV/IM USE ONLY) IVP PRN (18:35)
--- NOTE | 2019-02-14 19:45 | NUR ---
NURSE NOTES: Received report from ZACK Yo. Patient is awake, lying in high poe's; resting comfortably. A/Ox4. Denies pain at this time. No signs of acute distress noted. On NC @ 2LPM. With pacemaker at left chest. Checked IV site and flushed. No erythema, bleeding or infiltration noted. Bed at lowest position, brakes on, siderails x2. Call light within reach. Will continue to monitor.
[2019-02-14 20:00] VITALS: BP 132/86
--- NOTE | 2019-02-14 20:00 | NUR ---
HAND-OFF: Report given to Lorna Kohli.
[2019-02-14] MEDS: Zolpidem 5mg tab ORAL PRN (21:19)
[2019-02-15] VITALS: BP 134/93
--- NOTE | 2019-02-15 01:51 | NUR ---
NURSE NOTES: Resting throughout the night. No significant change of condition noted. Will continue to monitor.
[2019-02-15] MEDS: Guaifenesin/DM 10ml syrup ORAL PRN (03:08)
[2019-02-15 04:00] VITALS: BP 154/100
[2019-02-15 07:03] LABS: BASOPHILS % (AUTO) 0.5 % (0.0-2.0); EOSINOPHILS % (AUTO) 3.7 % (0.0-3.0); HEMATOCRIT 35.6 % (42.0-52.0); HEMOGLOBIN 10.7 G/DL (14.2-18.0); LYMPHOCYTES % (AUTO) 12.5 % (20.0-45.0); MEAN CORPUSCULAR VOLUME 76 FL (80-99); MONOCYTES % (AUTO) 15.9 % (1.0-10.0); NEUTROPHILS % (AUTO) 67.3 % (45.0-75.0); PLATELET COUNT 323 K/UL (150-450); RED BLOOD COUNT 4.69 M/UL (4.70-6.10); RED CELL DISTRIBUTION WIDTH 17.6 % (11.6-14.8); WHITE BLOOD COUNT 8.6 K/UL (4.8-10.8)
--- NOTE | 2019-02-15 07:20 | NUR ---
HAND-OFF: Report given to ZACK Garner. Plan of care endorsed.
[2019-02-15 07:29] LABS: ANION GAP 4 mmol/L (5-15); BLOOD UREA NITROGEN 22 mg/dL (7-18); CALCIUM 8.6 MG/DL (8.5-10.1); CARBON DIOXIDE 39 MMOL/L (21-32); CHLORIDE 102 MMOL/L (98-107); CREATININE 1.4 MG/DL (0.55-1.30); POTASSIUM 3.5 MMOL/L (3.5-5.1); SODIUM 145 MMOL/L (136-145)
[2019-02-15 08:00] VITALS: BP 149/79
--- NOTE | 2019-02-15 08:25 | NUR ---
RD ASSESSMENT & RECOMMENDATIONS SEE CARE ACTIVITY FOR COMPLETE ASSESSMENT DAILY ESTIMATED NEEDS: Needs based on obese, cardiac 78.5kg abw 20-25 kcals/kg 1258-9193 total kcals 1-1.2 g protein/kg 79-94 g total protein Fluid per MD, on diuretics NUTRITION DIAGNOSIS: Decreased sodium needs r/t edema, CHF as evidenced by BL foot and hand edema (3+), elev BNP (3593). CURRENT DIET: Low Na PO DIET RECOMMENDATIONS: LOW NA DIET + 1.2L fluid restriction per MD orders ADDITIONAL RECOMMENDATIONS: 1) rec WC eval for L foot wound (open, pt reports a 'bunion') 2) Diet edu provided on Low na diet 3) Add B-complex daily 4) Obtain daily calibrated bed scale wts on diuretics 5) Per MD notes- h/o Diabetes. BG currently wnl-> Rec HgA1C for eval BG now >100 (110-130)
[2019-02-15] MEDS: Amiodarone 200mg tab ORAL SCH (08:39)
[2019-02-15] MEDS: metOLazone 2.5 MG TAB ORAL SCH ×2 (08:40→20:11)
[2019-02-15] MEDS: Losartan 50mg tab ORAL SCH (08:40)
[2019-02-15] MEDS: Xarelto 15mg tab ORAL SCH (08:41)
[2019-02-15] MEDS: Metoprolol 25mg tab ORAL SCH ×2 (08:41→20:13)
--- NOTE | 2019-02-15 11:52 | Infectious Diseases Prog Note ---
Assessment/Plan Assessment/Plan Assessment: Sepsis likey 2ry to UTI- r/o bacteremia -u/a wbc 10-15, nit neg, leuk +3; ucx E.coli (R amp;otherwise S) -02/11 Bcx ngtd BLE edema superimposed with cellulitis, improving Low grade fever; improving Leukocytosis, worsened; now improving CHF exacerbation -CXR: Cardiomegaly. Bilateral interstitial edema. Suspect left-sided pleural effusion CKD 3 HTN CHF Dm2 GERD former smoker MARYURI AFib S/p PPM Obesity Plan: Ceftriaxone #4. can complete course with keflex 500mg PO q6H until 02/17. -02/12 SP Zosyn #2 -f/u cx -Monitor CBC/CMP, temperatures -f/u Bcx, sp cx -Cdiff if diarrhea -continue podiatry follow up with aggressive wound care as outpatient for big toe Thank you for this consultation. [facility] will continue to follow along with you. Discussed with RN Subjective Allergies: Coded Allergies: NO KNOWN DRUG ALLERGIES (Verified Allergy, Unknown, 06/08/15) Subjective Afebrile for 24hrs States he feels better. Swelling better. SOB better. No dysuria, flank pain, abdominal pain, toe pain. Objective Vital Signs Last 24 Hour Vital Signs Date Time Temp Pulse Resp B/P (MAP) Pulse Ox O2 Delivery O2 Flow Rate FiO2 02/15/19 09:00 Nasal Cannula 2.0 02/15/19 08:41 91 154/100 02/15/19 08:41 91 154/100 02/15/19 08:40 154/100 02/15/19 08:00 75 02/15/19 08:00 97.8 77 18 149/79 (102) 96 02/15/19 04:00 97.9 77 19 154/100 (118) 95 02/15/19 04:00 91 02/15/19 00:00 70 02/15/19 00:00 98.1 77 18 134/93 (107) 95 02/14/19 21:10 76 135/86 02/14/19 21:00 Nasal Cannula 2.0 02/14/19 20:00 97 Nasal Cannula 2.0 28 02/14/19 20:00 78 02/14/19 20:00 99.0 76 18 132/86 (101) 95 10/28/19 20:00 76 18 97 Nasal Cannula 2.0 28 02/14/19 19:05 98.6 02/14/19 17:07 55 20 99 Nasal Cannula 2.0 28 51 20 99 02/14/19 16:00 98.6 75 19 139/82 (101) 94 02/14/19 15:43 71 02/14/19 12:00 98.4 76 24 126/78 (94) 95 02/14/19 11:50 78 Height (Feet): 5 Height (Inches): 8.00 Weight (Pounds): 210 Objective Gen: NAD CV: RRR Resp: coarse Abd: soft. no TTP Back: no flank pain Neuro: alert. Laboratory Tests Test 02/15/19 06:02 White Blood Count 8.6 K/UL (4.8-10.8) Red Blood Count 4.69 M/UL (4.70-6.10) L Hemoglobin 10.7 G/DL (14.2-18.0) L Hematocrit 35.6 % (42.0-52.0) L Mean Corpuscular Volume 76 FL (80-99) L Mean Corpuscular Hemoglobin 22.8 PG (27.0-31.0) L Mean Corpuscular Hemoglobin Concent 30.1 G/DL (32.0-36.0) L Red Cell Distribution Width 17.6 % (11.6-14.8) H Platelet Count 323 K/UL (150-450) Mean Platelet Volume 6.4 FL (6.5-10.1) L Neutrophils (%) (Auto) 67.3 % (45.0-75.0) Lymphocytes (%) (Auto) 12.5 % (20.0-45.0) L Monocytes (%) (Auto) 15.9 % (1.0-10.0) H Eosinophils (%) (Auto) 3.7 % (0.0-3.0) H Basophils (%) (Auto) 0.5 % (0.0-2.0) Sodium Level 145 MMOL/L (136-145) Potassium Level 3.5 MMOL/L (3.5-5.1) Chloride Level 102 MMOL/L (98-107) Carbon Dioxide Level 39 MMOL/L (21-32) H Anion Gap 4 mmol/L (5-15) L Blood Urea Nitrogen 22 mg/dL (7-18) H Creatinine 1.4 MG/DL (0.55-1.30) H Estimat Glomerular Filtration Rate mL/min (>60) Glucose Level 117 MG/DL (74-106) H Calcium Level 8.6 MG/DL (8.5-10.1) Current Medications Medications (Trade) Dose Ordered Sig/Lucas Route PRN Reason Start Time Stop Time Status Last Admin Dose Admin Acetaminophen (Tylenol) 650 mg Q4H PRN ORAL Mild Pain/Temp > 100.5 02/13/19 08:45 03/15/19 08:44 02/13/19 08:59 Acetaminophen/ Hydrocodone Bitart ([place] 5/325) 1 tab Q4H PRN ORAL Moderate Pain (Pain Scale 4-6) 02/08/19 16:15 02/15/19 16:14 02/12/19 20:39 Albuterol/ Ipratropium (Albuterol/ Ipratropium) 3 ml Q4H PRN HHN Shortness of Breath 02/14/19 08:00 02/19/19 07:59 02/14/19 17:11 Amiodarone HCl (Cordarone) 200 mg DAILY ORAL 02/09/19 09:00 03/11/19 08:59 02/15/19 08:39 Amlodipine Besylate (Norvasc) 10 mg DAILY ORAL 02/15/19 09:00 03/17/19 08:59 02/15/19 08:41 Ceftriaxone Sodium 1 gm/ Dextrose 55 ml @ 110 mls/hr Q24H IVPB 02/12/19 14:00 02/19/19 13:59 02/14/19 14:57 Furosemide (Lasix) 20 mg EVERY 12 HOURS IV 02/14/19 21:00 03/16/19 20:59 02/15/19 08:39 Guaifenesin/ Dextromethorphan (Robitussin DM Syrup) 15 ml Q6H PRN ORAL For Cough 02/12/19 23:00 03/14/19 22:59 02/15/19 03:08 Losartan Potassium (Cozaar) 100 mg DAILY ORAL 02/09/19 09:00 03/11/19 08:59 02/15/19 08:40 Metolazone (Zaroxolyn) 2.5 mg Q12HR@0800,2000 ORAL 02/08/19 20:30 03/10/19 20:29 02/15/19 08:40 Metoprolol Tartrate (Lopressor) 25 mg Q12HR ORAL 02/08/19 21:00 03/10/19 20:59 02/15/19 08:41 Morphine Sulfate (Morphine Sulfate) 2 mg Q4H PRN IVP Severe Pain (Pain Scale 7-10) 02/08/19 16:15 02/15/19 16:14 02/14/19 18:35 Potassium Chloride (K-Dur) 40 meq TWICE A DAY ORAL 02/11/19 09:00 03/13/19 08:59 02/15/19 08:40 Rivaroxaban (Xarelto) 15 mg DAILY ORAL 02/09/19 09:00 03/11/19 08:59 02/15/19 08:41 Zolpidem Tartrate (Ambien) 5 mg HSPRN PRN ORAL Insomnia 02/10/19 20:48 02/17/19 20:47 02/14/19 21:19 Josefa Purdy MD Feb 15, 2019 11:52
[2019-02-15 12:00] VITALS: BP 150/96
--- NOTE | 2019-02-15 13:58 | General Progress Note ---
Assessment/Plan Problem List: (1) UTI (urinary tract infection) ICD Codes: N39.0 - Urinary tract infection, site not specified SNOMED: 10904491 (2) Peripheral edema ICD Codes: R60.9 - Edema, unspecified SNOMED: 129700497 (3) Cardiomyopathy ICD Codes: I42.9 - Cardiomyopathy, unspecified SNOMED: 42698235 (4) Respiratory distress ICD Codes: R06.00 - Dyspnea, unspecified SNOMED: 086267582 (5) Arrhythmia ICD Codes: I49.9 - Cardiac arrhythmia, unspecified SNOMED: 05970937, 40041717, 710180392 (6) Dyspnea ICD Codes: R06.00 - Dyspnea, unspecified SNOMED: 620273090 (7) CHF (congestive heart failure) ICD Codes: I50.9 - Heart failure, unspecified SNOMED: 46021798 Qualifiers: Qualified Codes: I50.41 - Acute combined systolic (congestive) and diastolic (congestive) heart failure Status: stable, progressing Assessment/Plan: o2 pulm tx abx pt diet eval dc to aru Subjective Constitutional: Reports: weakness Allergies: Coded Allergies: NO KNOWN DRUG ALLERGIES (Verified Allergy, Unknown, 06/08/15) All Systems: reviewed and negative except above Subjective o2nc calm in bed Objective Last 24 Hour Vital Signs Date Time Temp Pulse Resp B/P (MAP) Pulse Ox O2 Delivery O2 Flow Rate FiO2 02/15/19 12:00 78 02/15/19 09:00 Nasal Cannula 2.0 02/15/19 08:41 91 154/100 02/15/19 08:41 91 154/100 02/15/19 08:40 154/100 02/15/19 08:00 75 02/15/19 08:00 97.8 77 18 149/79 (102) 96 02/15/19 04:00 97.9 77 19 154/100 (118) 95 02/15/19 04:00 91 02/15/19 00:00 70 02/15/19 00:00 98.1 77 18 134/93 (107) 95 02/14/19 21:10 76 135/86 02/14/19 21:00 Nasal Cannula 2.0 02/14/19 20:00 97 Nasal Cannula 2.0 28 02/14/19 20:00 78 02/14/19 20:00 99.0 76 18 132/86 (101) 95 02/14/19 20:00 76 18 97 Nasal Cannula 2.0 28 02/14/19 19:05 98.6 02/14/19 17:07 55 20 99 Nasal Cannula 2.0 28 51 20 99 02/14/19 16:00 98.6 75 19 139/82 (101) 94 02/14/19 15:43 71 Intake and Output 02/14/19 02/15/19 19:00 07:00 Intake Total 362 ml 120 ml Output Total 1350 ml 600 ml Balance -988 ml -480 ml Intake Oral 362 ml 120 ml Output Urine Total 1350 ml 600 ml # Voids 2 2 # Bowel Movements 1 Laboratory Tests 02/15/19 06:02: White Blood Count 8.6, Red Blood Count 4.69L, Hemoglobin 10.7L, Hematocrit 35.6L , Mean Corpuscular Volume 76L, Mean Corpuscular Hemoglobin 22.8L, Mean Corpuscular Hemoglobin Concent 30.1L, Red Cell Distribution Width 17.6H, Platelet Count 323, Mean Platelet Volume 6.4L, Neutrophils (%) (Auto) 67.3, Lymphocytes (%) (Auto) 12.5L, Monocytes (%) (Auto) 15.9H, Eosinophils (%) (Auto ) 3.7H, Basophils (%) (Auto) 0.5, Sodium Level 145, Potassium Level 3.5, Chloride Level 102, Carbon Dioxide Level 39H, Anion Gap 4L, Blood Urea Nitrogen 22H, Creatinine 1.4H, Estimat Glomerular Filtration Rate , Glucose Level 117H, Calcium Level 8.6 Height (Feet): 5 Height (Inches): 8.00 Weight (Pounds): 210 General Appearance: lethargic EENT: normal ENT inspection Neck: normal alignment Cardiovascular: normal peripheral pulses, normal rate, regular rhythm Respiratory/Chest: chest wall non-tender, lungs clear, normal breath sounds Abdomen: normal bowel sounds, non tender, soft Extremities: normal inspection Edema: 2+ Pedal (L), 2+ Pedal (R) Edema: mild edema Neurologic: responsive, motor weakness Skin: normal pigmentation, warm/dry Jose Elias Santizo DO Feb 15, 2019 13:58
[2019-02-15] MEDS: cefTRIAXone 1 GM in D5W 55 ML IVPB SCH (14:12)
[2019-02-15 16:00] VITALS: BP 136/89
[2019-02-15] MEDS: Albuterol/Ipratropium 3ml neb HHN PRN (16:42)
--- NOTE | 2019-02-15 16:45 | NUR ---
CLIENT SALES AND SERVICE OFFICER NOTES SPOKE WITH PT FACE TO FACE, [facility]. LEFT MESSAGE WITH PT'S SISTER [phone]. [facility]. PT MADE AWARE. Addendum: 02/15/19 at 1650 by SHARI PHIPPS RN RN NURSE TO CALL REPORT TO [phone].
[2019-02-15] MEDS: HYDROcodone/Acetamin 5/325 tab ORAL PRN (17:50)
--- NOTE | 2019-02-15 19:25 | NUR ---
NURSE NOTES: Received report from ZACK Garner. Patient is awake, lying in high poe's; resting comfortably. A/Ox4. Denies pain at this time. No signs of acute distress noted. Checked IV site and flushed. No signs of erythema, infiltration, or bleeding noted. Bed at lowest position, brakes on, siderailsx2. Call light within reach. Will continue to monitor. Addendum: 02/15/19 at 2306 by Lorna Lagunas RN On oxygen via [place] @ 2LPM.
[2019-02-15 20:13] VITALS: BP 133/83
--- NOTE | 2019-02-15 21:45 | NUR ---
NURSE NOTES: 2109 Patient was discharged to [facility] and able to transfer self from bed to [facility] with 2 junior analyst staff member assistance without any incident. With oxygen via [place] @ 2LPM. Denies pain at this time. No signs of acute distress noted. Vital signs stable HR= 79, RR=18, BP=92/68, SpO2=97% upon discharge. Patient taken off tele box; tolerated well. IV line kept in place as ordered and flushed. Discharge packet with medication lists and belongings given to junior analyst. 2134 Patient left the hospital via [facility] with 2 junior analyst without any incident. 2139 Called [facility] and spoke with Kyung primary nurse that patient left the hospital.
--- NOTE | 2019-02-16 13:36 | Discharge Summary ---
Discharge Summary Discharge Summary _ DATE OF ADMISSION: 02/08/2019 DATE OF DISCHARGE: 02/15/2019 DISCHARGED BY: Dr. Santizo REASON FOR ADMISSION: 73 years old male with past medical history of congestive heart failure , hypertensive chronic kidney disease , GERD, sleep apnea, prediabetes , presented with acute shortness of breath over the last 7 days. Patient reported dyspnea. He reported weight gain and leg swelling. No chest pain. No nausea or vomiting. No abdominal pain. Upon evaluation vital signs were stable, pulse oximetry was 92% on room air . Laboratory work-up revealed no leukocytosis , hemoglobin 10.7 , hematocrit 35.9 , platelet count 283. Sodium 146, BUN 31, creatinine 1.9. Troponin 0.03 , pro BNP 3593. Albumin 2.8. Urine toxicology screen was negative. EKG revealed AV paced dual rhythm, no acute ST elevation. Chest x-ray revealed evidence of cardiomegaly and bilateral interstitial edema. Suspected left-sided pleural effusion. In the emergency department patient received Lasix and admitted to telemetry floor for further management. CONSULTANTS: finish repair worker Dr. Cornelius CARVALHO specialist Dr. Alvarez graphics specialist Dr. Pollard [facility] COURSE: Patient admitted to telemetry floor. Preventive Maintenance Coordinator closely followed. Patient started on diuretics: metolazone and Lasix. Intake and output was closely monitored. Fluid restriction was implemented : less than 1500 cc. Echocardiogram demonstrated preserved ejection fraction of 55% with no evidence of left ventricular hypertrophy. No evidence of wall motion abnormality. Mild to moderate aortic insufficiency. Mild to moderate tricuspid regurgitation. Right ventricular systolic pressure of 68 consistent with severe pulmonary hypertension. Patient has a prior known history of paroxysmal atrial fibrillation ; status post dual-chamber pacemaker implantation in [facility] as well as hypertension. Patient follows up with his finish repair worker as outpatient. Amiodarone was continued. Anticoagulation with Xarelto continued. Blood pressure was managed with multiply antihypertensive medication and doses were further uptitrated due to uncontrolled blood pressure. Blood pressure was managed with angiotensin receptor tobin, beta-tobin and calcium channel tobin. Patient additionally was on diuretics. Blood pressure stabilized. Regional Administrative Assistant closely followed. Renal ultrasound demonstrated normal kidneys. No evidence of hydronephrosis. Bladder wall thickening and trabeculation , possibly indicative of chronic outlet obstruction. Prostatomegaly. Prostate volume 69 mL. Renal parameters and electrolytes were closely monitored. Nonsteroidal anti-inflammatory were avoided. Lasix dose was down trended. Electrolytes : potassium , calcium , and sodium corrected. Prior to discharge sodium 145, potassium 3.5, and calcium 8.6. Creatinine from initial 1.9 down to 1.4. Blood sugar remained stable, likely prediabetes. No antiglycemic implemented. While in the hospital on 02/10 patient noted to have leukocytosis-18.6, which increased up to 31.4 the next day. Patient also had fever. Infectious disease consult was requested. Patient started on empiric antibiotic. Urine culture revealed E. coli. Blood cultures were negative. Per infectious disease specialist, patient had sepsis likely secondary to UTI. Patient also had bilateral lower extremity edema with superimposed cellulitis. Patient was on empiric antibiotics. Fevers and leukocytosis resolved. Infectious disease specialist recommended to complete course of Keflex until . Pain management was addressed as needed. Bowel regimen instituted. Supplemental oxygen was on board as needed. Pulse oximetry remained stable on room air. Patient clinically stabilized and was ready for discharge to acute rehabilitation unit at [facility] for further rehabilitation. FINAL DIAGNOSES: Acute on chronic congestive heart failure with preserved ejection fraction/ diastolic dysfunction Sepsis likely secondary to UTI E. coli UTI Bilateral lower extremity edema superimposed with cellulitis- improved Paroxysmal atrial fibrillation Hypertension Status post dual-chamber pacemaker implantation with right atrial and right ventricular lead dislodgment Acute kidney injury on chronic kidney disease Prediabetes Severe pulmonary hypertension Electrolyte abnormalities: hypokalemia, hypocalcemia, hypernatremia DISCHARGE MEDICATIONS: See Medication Reconciliation list. DISCHARGE INSTRUCTIONS: Patient was discharged to acute rehabilitation unit at [facility]. I have been assigned to dictate discharge summary for this account. I was not involved in the patient's management. Krys Valadez NP Feb 16, 2019 13:36
--- NOTE | 2019-02-16 15:26 | Cardiology Report ---
APPROVED REPORT EKG Measurement Heart [id number] TX 294P [id number] Atrioventricular Sequential Pacemaker Abnormal ECG
--- NOTE | 2019-02-16 15:54 | Cardiology Report ---
APPROVED REPORT EKG Measurement Heart [id number] Abnormal ECG Atrioventricular Sequential Pacemaker
== END 2019-02-15 21:45 | disposition short-term general hospital (02) | DRG 291 ==
LOC: EMR 12:25 → 2E 12:35 → EDBEDREQ 13:21 → 2E 02-09 09:05
DX: I13.0 Hypertensive heart and chronic kidney disease with heart failure and stage 1 through stage 4 chronic kidney disease, or unspecified chronic kidney disease (principal); I50.33 Acute on chronic diastolic (congestive) heart failure; A41.9 Sepsis, unspecified organism; N17.9 Acute kidney failure, unspecified; E46 Unspecified protein-calorie malnutrition; E87.0 Hyperosmolality and hypernatremia; N39.0 Urinary tract infection, site not specified; L03.116 Cellulitis of left lower limb; L03.115 Cellulitis of right lower limb; N18.9 Chronic kidney disease, unspecified; I10 Essential (primary) hypertension; K21.9 Gastro-esophageal reflux disease without esophagitis; I35.1 Nonrheumatic aortic (valve) insufficiency; I36.1 Nonrheumatic tricuspid (valve) insufficiency; I27.20 Pulmonary hypertension, unspecified; I48.0 Paroxysmal atrial fibrillation; Z95.0 Presence of cardiac pacemaker; R73.03 Prediabetes; E87.6 Hypokalemia; E83.51 Hypocalcemia; Z79.01 Long term (current) use of anticoagulants; G47.33 Obstructive sleep apnea (adult) (pediatric); B96.20 Unspecified Escherichia coli [E. coli] as the cause of diseases classified elsewhere
CPT/HCPCS: 36415; 71045; 76770; 80048; 80053; 80307; 81001; 82043; 82550; 82553; 82570; 83690; 83880; 84300; 84484; 85007; 85025; 85610; 85730; 87040; 87086; 87181; 89050; 93005; 93306; 94640; 94664; 96374; 99285; J7620; J8499